=== PATIENT | female | born 2000 | race Caucasian/White ===

== ENCOUNTER 2023-01-08 14:06 | Outpatient (CLI) | payer OTHER, SELFPAY | END 2023-01-08 14:07 | disposition home or self-care (01) | PROVIDERS: Visit Provider Physician Assistant Medical | DX: K59.09 Other constipation (principal); R19.5 Other fecal abnormalities | CPT/HCPCS: 80053; 82784; 84443; 86364 ==

== ENCOUNTER 2023-01-09 12:05 | Outpatient (CLI) | payer OTHER, SELFPAY | END 2023-01-09 12:06 | disposition home or self-care (01) | LOC: NFLDREF 01-11 14:50 | PROVIDERS: Visit Provider Physician Assistant Medical | DX: R19.5 Other fecal abnormalities (principal) | CPT/HCPCS: 87177; 87209; 87338 ==

== ENCOUNTER 2023-01-31 12:54 | Outpatient (CLI) | payer OTHER, SELFPAY | END 2023-01-31 12:55 | disposition home or self-care (01) | LOC: RAD 12:56 | PROVIDERS: PCP Physician Assistant Medical; Visit Provider Internal Medicine | DX: R00.2 Palpitations (principal) | CPT/HCPCS: 93306 ==

== ENCOUNTER 2023-05-08 13:44 | Emergency (ER) | payer OTHER, SELFPAY ==
[2023-05-08 14:00] VITALS: BP 113/70; PULSE 54; RESP 16; TEMP 37; O2SAT 100; BMI 22.3
[2023-05-08 16:14] LABS: Red Blood Count 4.71 m/uL (4.00-5.20)
[2023-05-08 16:15] LABS: Basophils Percent Auto 0.7 % (0.0-3.0); Eosinophils Percent Auto 3.3 % (0.0-7.0); Hematocrit 44.2 % (33.0-51.0); Hemoglobin* 14.5 gm/dL (12.0-16.0); Lymphocytes Percent Auto 38.1 % (20-44); Mean Corpuscular HGB Conc 33 gm/dL (32-36); Mean Corpuscular Hemoglobin 31 pg (26-34); Mean Corpuscular Volume 94 fL (80-100); Monocytes Percent Auto 5.9 % (0.0-11.0); Platelet Count* 287 K/uL (140-440); Slide Review Reflex No
[2023-05-08 16:21] LABS: C Reactive Protein* < 0.5 mg/dL (0.5-1.0)
--- NOTE | 2023-05-08 22:42 | ED_ITS ---
HPI - General Adult General Chief complaint: Neck Injury/Pain Time Seen by Provider: 05/08/23 16:25 History of Present Illness HPI narrative: Shayy Belle Patient seen in Internet down time with limited information 22 yo young woman here with complaint of neck pain.? She was sent from the [facility] with concern of meningitis.? She does not have radicular symptoms.? She has been feeling chilled.? Any neck movement hurts.? Hurts to swallow but more in the back of the neck.? When asked for indication of where maximal pain she reaches to the right lower paracervical/trapezial musculature.? She has not had any particular exposures to illness.? Has felt like she has had a bit of a runny nose since swimming a dirty [place] without known infection, 3 weeks ago.? 2 days ago when woke up are started to have some including of discomfort in her neck.? This has continued to be present since that time and escalates over the course of the day.? She has had no fever.? No rash.? As noted has had some chills.? Mild bitemporal headache.? Mildly sun sensitive.? No nausea or vomiting.? She has tried treatment with ice Advil acetaminophen.? Most heat as well.? Ice seems to be most helpful.? Extension actually seems to cause most pain.? She has been vaccinated for meningitis. Related Data Home Medications Medication Instructions Recorded Confirmed etonogestrel 68 mg subdermal 1 implant subdermal ONCE 11/17/22 05/21/23 implant (Nexplanon) Allergies Allergy/AdvReac Type Severity Reaction Status Date / Time miconazole AdvReac Intermediate Verified 05/21/23 12:43 Review of Systems Status of ROS: Reports: 6 or more systems reviewed and unremarkable except as noted in History and below [facility] Medical History History of seizure ?Z87.898 - Personal history of other specified conditions (ICD-10) Congenital genu valgum of both knees ?Q74.1 - Congenital malformation of knee (ICD-10) Bartholin's duct cyst ?N75.0 - Cyst of Bartholin's gland (ICD-10) Heart palpitations ?R00.2 - Palpitations (ICD-10) Surgical History Bartholin's duct cyst ?N75.0 - Cyst of Bartholin's gland (ICD-10) Family History Grandmother Diabetes High blood pressure Mother High blood pressure Coronary artery disease Father Coronary artery disease Social History Narrative: Single. 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 Nonsmoker. Denies alcohol use. No illicit drug use. Safe at home and no concerns with abuse. Smoking Status: Never smoker How often do you have a drink containing alcohol: never How often do you have six or more drinks on one occasion: Never AUDIT-C Alcohol total score: 0 Non-prescribed substance use: denies use Little interest or pleasure in doing things: not at all Feeling down, depressed, or hopeless: not at all Are you currently sexually active: Yes Are you using contraception or practicing any form of control: Yes (Nexplanon) Exam Narrative: Exam Narrative: clearly anxious. looks to have been tearful. ice pack at right posterior neck. assists movement of neck with rotation of torso. moderately tender to palpation in right paracervical and right trapezial musculature more than left. not clearly with midline tenderness. Negative Kernig's and Brudzinski's no facial swelling erythema tenderness. tms clear. op without erythema. Skin warm and dry without rash. Const: Vital Signs, click to edit/add: Vital Signs - 24 hr 05/08/23 14:00 Temperature 98.6 F Pulse Rate [Left P ulse Oximeter] 54 L Respiratory Rate 16 Blood Pressure [Le ft Upper Arm] 113/70 Pulse Oximetry 100 Oxygen Delivery Me thod Room Air Documenting provider has reviewed patient's vital signs: yes Course Vital Signs Vital signs: Initial Vital Signs Temperature 98.6 F 05/08/23 14:00 Temperature Source Temporal Artery Scan 05/08/23 14:00 Pulse Rate 54 L 05/08/23 14:00 Respiratory Rate 16 05/08/23 14:00 Blood Pressure 113/70 05/08/23 14:00 Blood Pressure Mean 84 05/08/23 14:00 Blood Pressure Position Sitting 05/08/23 14:00 Pulse Oximetry 100 05/08/23 14:00 Oxygen Delivery Method Room Air 05/08/23 14:00 Vital Signs Temperature 98.6 F 05/08/23 14:00 Pulse Rate 54 L 05/08/23 14:00 Respiratory Rate 16 05/08/23 14:00 Blood Pressure 113/70 05/08/23 14:00 Pulse Oximetry 100 05/08/23 14:00 Oxygen Delivery Method Room Air 05/08/23 14:00 Temperature 98.6 F 05/08/23 14:00 Pulse Rate 54 L 05/08/23 14:00 Respiratory Rate 16 05/08/23 14:00 Blood Pressure 113/70 05/08/23 14:00 Pulse Oximetry 100 05/08/23 14:00 Oxygen Delivery Method Room Air 05/08/23 14:00 Medical Decision Making MDM Narrative Medical decision making narrative: suspect msk pain more than infectious. offered local anesthetic injections. suspect facet issue and muscle pain and spasms. normal wbc Discussed with Dr. Ferreira for potential follow up. see patient d/c plan Lab Data Lab results reviewed: Yes I reviewed the patient's lab results Labs: Lab Results 05/08/23 Range/Units 15:50 WBC 5.80 (4.50-11.00) K/uL RBC 4.71 (4.00-5.20) m/uL Hgb 14.5 (12.0-16.0) gm/dL Hct 44.2 (33.0-51.0) % MCV 94 (80-100) fL MCH 31 (26-34) pg MCHC 33 (32-36) gm/dL Plt Count 287 (140-440) K/uL Neut % (Auto) 52.0 (42.0-72.0) % Lymph % (Auto) 38.1 (20-44) % [place] % (Auto) 5.9 (0.0-11.0) % Eos % (Auto) 3.3 (0.0-7.0) % Baso % (Auto) 0.7 (0.0-3.0) % Neut # (Auto) 3.00 (1.7-7.0) K/uL Lymph # (Auto) 2.20 (0.90-2.90) K/uL [place] # (Auto) 0.30 (0.00-0.90) K/UL Eos # (Auto) 0.20 (0.00-0.50) K/uL Baso # (Auto) 0.00 (0.00-0.30) K/uL C-Reactive Protein < 0.5 L (0.5-1.0) mg/dL Discharge Plan Discharge Clinical Impression: Neck pain Patient Disposition: Home w/ Parent or Adult Condition: Stable Additional Instructions: I just do not see clear evidence of meningitis here today. I think this is a musculoskeletal issue. I spoke with Dr. Ferreira would be happy to see you in clinic, probably this . You can call phone number [phone] to schedule with him. You could also consider seeing an osteopathic physician perhaps at the [facility]. I believe Dr. Dang does do manipulations as needed. You may need involvement of physical therapy. There are some local chiropractor is a might consider seeing but avoid large manipulations of the neck. Consider Dr. William Hester [phone] Rinku Angulo I would try to do gentle pull-down stretches of your neck. Icing is fine. Can take up to 800 mg of ibuprofen or up to 1000 mg of acetaminophen per dose. Alternative to the ibuprofen might be up to 500 mg of naproxen. Keep in mind that each tablet of Percocet contains 325 mg of acetaminophen. Percocet, cyclobenzaprine, prednisone from [facility] Take the prednisone as 60 mg on day 1 and 2. 40 mg daily days 3 through 6 Prescriptions: No Action Nexplanon 68 mg implant 1 implant subdermal ONCE Rx Instructions: as a single dose Follow Up/Referrals: Radha Florez PA-C [Primary Care Provider] - Stand Alone [facility] Info Inst[facility]
== END 2023-05-08 17:03 | disposition home or self-care (01) ==
PROVIDERS: Family Medicine; Emergency Provider Family Medicine; PCP Physician Assistant Medical
DX: M54.2 Cervicalgia (principal)
CPT/HCPCS: 36415; 85025; 86140; 99284

== ENCOUNTER 2023-05-21 13:09 | Outpatient (CLI) | payer OTHER, SELFPAY | END 2023-05-21 13:10 | disposition home or self-care (01) | PROVIDERS: PCP Physician Assistant Medical; Visit Provider Obstetrics & Gynecology | DX: N75.1 Abscess of Bartholin's gland (principal) | CPT/HCPCS: 87070; 87186 ==

== ENCOUNTER 2023-09-18 09:54 | Outpatient (CLI) | payer OTHER, SELFPAY | END 2023-09-18 09:55 | disposition home or self-care (01) | LOC: NFLDREF 09:55 | PROVIDERS: PCP Physician Assistant Medical; Visit Provider Obstetrics & Gynecology | DX: N75.1 Abscess of Bartholin's gland (principal) | CPT/HCPCS: 87070 ==

== ENCOUNTER 2023-11-27 08:45 | Outpatient (CLI) | payer OTHER, SELFPAY ==
--- OUTSIDE RECORDS SUMMARY | 2023-11-27 09:14 | XMS_ITS | Clinical Summary ---
Author Name Unknown Organization [facility] Address [address] [place] [address]. [place] [address] Care Team Providers Care [employer] Advisor Name Role Phone No Ref-Primary, Physician Primary Care Provider Allergies No known active allergies Medications No known medications Immunizations Name Administration Dates Next Due Comvax (HIB/HepB) 01/15/2003 DTAP (<7y) 09/16/2007, 3,01/15/2003,11/20 HEPATITIS A (PEDS 12M-18Y) 10/07/2007,09/11/2006 HIB (PRP-T) 2002 Hepatitis B, Peds 07/01/2003,01/15/2003,11/20/19 03 Influenza (H1N1) 11/09/2009,09/14/2009 Influenza (IIV3) PF 08/07/2007, 6,09/05/2005,08/16,09/21/2003 Influenza Intranasal Vaccine 07/09/2012, 08/14/2011,07/23/2010,07/30,08/11/2008 Influenza Vaccine >6 months,quad, PF 09/30/2015 Influenza, seasonal, injectable, PF 09/26/2016 Influenza,INJ,MDCK,PF,Quad >6mo(Flucelvax) 09/15/2020,08/22/2017 MMR 09/16/2007,09/21/2003 Meningococcal ACWY (Menactra??) 11/10/2020,10/09 Meningococcal ACWY (Menveo??) 10/09/2014 Meningococcal B (Bexsero??) 11/10/2020 Nasal Influenza Vaccine 2-49 (FluMist) 3 Pneumococcal (PCV 7) 09/13/2004,03/19/20 03,01/15/2003,11/20 Poliovirus, inactivated (IPV) 10/07/2007 ,07/01/2003,01/15/2003,11/20 TDAP (Adacel,Boostrix) 10/09/2014 TRIHIBIT (DTAP/HIB, <7y) 12/29/2003 Varicella 09/16/2007,09/21/2003 Family History Relation Status Comments Father Alive Mother Alive Social History Tobacco Use Types Packs/Day Years Used Date Smoking Tobacco: Passive Smo ke Exposure - Never Smoker Smokeless Tobacco: Never Comments:in home Alcohol Use Standard Drinks/Week Comments Not Currently 0 (1 standard drink = 0.6 oz pur e alcohol) Adolescent Education Answer Date Record ed Getting School Help Needed Not on file 07/22 Sex and Gender Information Value Date Recorded Sex Assigned at Not on file Gender Identity Not on file Sexual Orientation Not on file Last Filed Vital Signs Vital Sign Reading Time Taken Comments Blood Pressure 110/66 01/20/2022 11:34 AM CDT Pulse 78 01/20/2022 11:34 AM CDT Temperature 37.2 ??C (98.9 ??F) 01/20/2022 11:34 AM C DT Respiratory Rate - - Oxygen Saturation 98% 01/20/2022 11:34 AM CDT Inhaled Oxygen Concentration - - Weight 58.5 kg (129 lb) 01/20/2022 11:34 AM CDT Height - - Body Mass Index - - Plan of Treatment Health Maintenance Due Date Last Done Comments ADVANCE CARE PLANNING 2002 ANNUAL REVIEW OF HM ORDERS 2002 CHLAMYDIA SCREENING 2002 YEARLY PREVENTIVE VISIT 2002 COVID-19 Vaccine (#1) 03/18/2003 HPV IMMUNIZATION (1 - 2-dose series) 2013 HIV SCREENING 2017 HEPATITIS C SCREENING 2020 INFLUENZA VACCINE (#1) 2023 0, 08/22/2017, 09/26/2016, Additional history exists PAP 2023 PHQ-2 (once per calendar year) 2023 DTAP/TDAP/TD IMMUNIZATION (7 - Td or Tdap) 10/09/2024 10/09/2014, 09/16/2007, 12/29/2003, Additional history exists HEPATITIS B IMMUNIZATION Completed 003, 01/15/2003, 01/15/2003, Additional history exists Pneumococcal Vaccine: Pediatrics (0 to 5 Years) and At-Risk Patients (6 to 64 Years) Aged Out 09/13/2004, 03/19/2003, 01/15/2003, Additional history exists No longer eligible based on patient's age to complete this topic IPV IMMUNIZATION Completed 10/07/2007, 12/2002, 01/15/2003, Additional history exists MENINGITIS IMMUNIZATION Completed 11/10/19 21, 10/09/2014, 10/09/2014 RSV MONOCLONAL ANTIBODY Aged Out No l onger eligible based on patient's age to complete this topic Care Teams [employer] Advisor Relationship Specialty Start Date End Date No Ref-Primary, Physician PCP - General 01/20/22
--- OUTSIDE RECORDS SUMMARY | 2023-11-27 09:14 | XMS_ITS | Clinical Summary ---
Author Name Unknown Organization [facility] Address [place], [place] [address] Care Team Providers Care Saddle Mechanic Name Role Phone Dennis Leone MD Primary Care Provider Allergies Active Allergy Reactions Criticality Noted Date Comments Miconazole *Unknown 02/18/2023 Patient states it does the opposite of what it should be doing Medications Medication Sig Dispensed Refills Start Date End Date Status etonogestrel subdermal implant (Nexplanon) 68 mg implant Inject 1 Each subdermal one time for 1 dose. 1 Each 0 02/18/2023 Active Active Problems Problem Noted Date Diagnosed Date Constipation Immunizations Name Administration Dates Next Due DTaP 09/16/2007, 4,03/19/2003,01/15,2002 Hepatitis A (Peds) 10/07/2007,09/11/2006 Hepatitis B (Peds) 07/01/2003,01/15/2003, 003 Hib Conjugate, Unspecified 12/29/2003,01/15/2003 ,2002 Inactivated Polio Vaccine 10/07/2007,12/2002,01/15/2003,11/20 Influenza A (H1N1), Inactivated 11/09/2009,09/14 Influenza, IIV3 (Age 6-35 mos) 09/26/2016 Influenza, IIV3 (Age >=3 years) 08/07/20 07,08/20/2006,09/05/2005,08/16,09/21/2003 Influenza, IIV4 08/01/2022,09/30/2015 Influenza, Live, Intranasal Laiv3 07/09/2012,,08/11/2008 Influenza,CCIIV4 PRESERV FREE 09/15/2020, 017 Influenza,LAIV4 Live Intrana mango (Flumist) 08/05/2013 MMR 09/16/2007,09/21/2003 Meningococcal Vaccine (Menactra) 11/10/2020,09/28 Pneumococcal Poly,23-Valent (Pneumovax) 09/13/2004,03/19/2003,01/15/2003,11/20 Tdap 10/09/2014 Varicella Vaccine 09/16/2007,09/21/2003 Social History Tobacco Use Types Packs/Day Years Used Date Smoking Tobacco: Never Smokeless Tobacco: Never Alcohol Use Standard Drinks/Week Comments No 0 (1 standard drink = 0.6 oz pur e alcohol) Social Connections Answer Date Recorded Frequency of Communication with Friends and Fami ly Not on file 01/05/2023 Sex and Gender Information Value Date Recorded Sex Assigned at Not on file Gender Identity Not on file Sexual Orientation Not on file Obstetrics History Last Filed Vital Signs Vital Sign Reading Time Taken Comments Blood Pressure 117/57 05/20/2023 3:50 AM CDT Pulse 64 05/20/2023 3:50 AM CDT Temperature 37.1 ??C (98.7 ??F) 05/20/2023 12:44 AM C DT Respiratory Rate 16 05/20/2023 3:50 AM CDT Oxygen Saturation 96% 05/20/2023 3:50 AM CDT Inhaled Oxygen Concentration - - Weight 59 kg (130 lb) 05/20/2023 12:44 AM CDT Height 163.8 cm (5' 4.5) 05/20/2023 12:44 AM CD T Body Mass Index 21.97 05/20/2023 12:44 AM CDT Plan of Treatment Health Maintenance Due Date Last Done Comments HPV series for age 9-26 (1 - 2-dose series) 2013 Depression screening for age 12+ 2014 HIV for age 15-65 2017 Hepatitis C screening for age 18-79 2020 COVID-19 vaccine series (2022- season) 2023 04/05/2023 Influenza for age 9-49 06/29/2023 , 09/15/2020, 08/22/2017, Additional history exists Pap test for age 21-65 2023 BMI (ht and wt on same day) for age 18+ 02/19/2024 02/18/2023 Tetanus booster 10/09/2024 10/09/2014 Pneumococcal series for age 6-64 Aged Out 09/13/2004, 03/19/2003, 01/15/2003, Additional history exists No longer eligible based on patient's age to complete this topic Tdap Completed 10/09/2014 Meningococcal series for age 11-21 Completed 11/10/2020, 10/09/2014 Care Teams Saddle Mechanic Relationship Specialty Start Date End Date Dennis Leone MD [address] [place] [address] PCP - General 06/27/10
--- OUTSIDE RECORDS SUMMARY | 2023-11-27 09:15 | XMS_ITS | Referral Summary ---
Author Name Unknown Organization [facility] Address [address] [place] [address]. [place] [address] Care Team Providers Care Clinical Documentation Improvement Specialist Name Role Phone No Ref-Primary, Physician Primary [...] 10/09/2014 TRIHIBIT (DTAP/HIB, <7y) 12/29/2003 Varicella 09/16/2007,09/21/2003 Social History Tobacco Use Types Packs/Day [...] Mass Index - - Plan of Treatment Not on file Care Teams Clinical Documentation Improvement Specialist Relationship Specialty Start Date End Date No Ref-Primary, Physician PCP - General 01/20/22
== END 2023-11-27 08:46 | disposition home or self-care (01) ==
LOC: NFLDREF 08:47
PROVIDERS: PCP Physician Assistant Medical; Visit Provider Obstetrics & Gynecology
DX: N75.0 Cyst of Bartholin's gland (principal)
CPT/HCPCS: 87070

== ENCOUNTER 2023-11-28 10:25 | Outpatient (CLI) | payer OTHER, SELFPAY ==
--- OUTSIDE RECORDS SUMMARY | 2023-11-28 10:33 | XMS_ITS | Clinical Summary ---
Author Name Unknown Organization [facility] Address [place], [place] [address] Care Team Providers Care Animal Shelter Supervisor Name Role Phone Dennis Leone MD Primary [...] age 11-21 Completed 11/10/2020, 10/09/2014 Care Teams Animal Shelter Supervisor Relationship Specialty Start Date End Date Dennis Leone MD [address] [place] [address] PCP - General 06/27/10
--- OUTSIDE RECORDS SUMMARY | 2023-11-28 10:33 | XMS_ITS | Referral Summary ---
Author Name Unknown Organization [facility] Address [address] [place] [address]. [place] [address] Care Team Providers Care Fishery Biologist Name Role Phone No Ref-Primary, Physician Primary [...] of Treatment Not on file Care Teams Fishery Biologist Relationship Specialty Start Date End Date No Ref-Primary, Physician PCP - General 01/20/22
--- OUTSIDE RECORDS SUMMARY | 2023-11-28 10:33 | XMS_ITS | Clinical Summary ---
Author Name Unknown Organization [facility] Address [address] [place] [address]. [place] [address] Care Team Providers Care Joint Cutter Machine Name Role Phone No Ref-Primary, Physician Primary [...] age to complete this topic Care Teams Joint Cutter Machine Relationship Specialty Start Date End Date No Ref-Primary, Physician PCP - General 01/20/22
== END 2023-11-28 10:26 | disposition home or self-care (01) ==
LOC: NFLDREF 10:26
PROVIDERS: PCP Physician Assistant Medical; Visit Provider Obstetrics & Gynecology
DX: D72.829 Elevated white blood cell count, unspecified (principal); N75.1 Abscess of Bartholin's gland
CPT/HCPCS: 86703

== ENCOUNTER 2023-11-30 14:37 | Inpatient (IN) | payer OTHER, SELFPAY ==
--- NOTE | 2023-11-30 14:53 | CRLHL7_ITS ---
For Patients: As a result of the Century Cures Act, medical imaging exams and procedure reports are released immediately into your electronic medical record. You may view this report before your referring provider. If you have questions, please contact your health care provider. INDICATION: Bartholin and vulvar abscess unresponsive to I and D, and PO abx. CT ABDOMEN AND PELVIS WITHOUT AND WITH CONTRAST TECHNIQUE: Multidetector CT imaging was performed through the abdomen and pelvis prior to and following intravenous contrast administration using 67 mL Isovue 370. Coronal and sagittal reconstructions were generated. COMPARISON: None. FINDINGS: Lower chest: Lung bases are clear. Liver: Within normal limits. Gallbladder and bile ducts: No gallbladder wall thickening or calcified gallstones. No biliary dilation identified. Pancreas: Unremarkable. Spleen: Normal. Adrenals: No nodules or masses. Kidneys, ureters, and urinary bladder: No urinary tract stones are identified. No renal masses or hydronephrosis. No bladder mass or definite wall thickening. Gastrointestinal tract: Normal caliber bowel without wall thickening. The appendix is normal. Vascular structures: Normal for age. Peritoneum: No free air, abscess, or significant free fluid. Lymph nodes: No pathologically enlarged nodes identified. Reproductive organs: There is soft tissue swelling of the labia majora, greatest on the right, with a bilobed fluid collection showing enhancing margins, consistent with an abscess, in the region of the right Bartholin gland. The abscess has a 1.7 x 0.8 x 1.5 centimeter loculation best seen on image 155 of series 6 and image 43 of series 8, and a more inferior and anterior 3.2 x 2.3 x 2.9 centimeter loculation, with the loculations likely connected by a narrow neck as suggested on image 40 of series 8. An 11 x 5 x 8 millimeter focus of high density is noted along the superior wall of the larger loculation and may represent a calcification or less likely a foreign body. A 3.4 x 2.7 x 3.1 centimeter cystic lesion is noted within the right ovary, likely an ovarian cyst. Unremarkable uterus and left ovary. Bones: Normal for age. IMPRESSION: 1. Bilobed abscess in the region of the right Bartholin gland, as detailed above. The abscess has loculations measuring 1.7 x 0.8 x 1.5 centimeters and 3.2 x 2.3 x 2.9 centimeters which appear connected by a narrow neck. An 11 x 5 x 8 millimeter calcification, less likely foreign body, is noted along the superior wall of the larger loculation. 2. Incidental 3.4 x 2.7 x 3.1 centimeter probable cyst of the right ovary. CLIVE PHILLIPS MD [facility] Dictated by Dwight Phillips MD @ 11/30/2023 7:17:07 PM Please note that all CT scans at this facility use dose modulation, iterative reconstruction, and/or weight-based dosing when appropriate to reduce radiation dose to as low as reasonably achievable. Dictated by: Dwight Phillips MD @ 11/30/2023 19:19:57 (Electronically Signed)
[2023-11-30 15:33] VITALS: TEMP 37.2
[2023-11-30] MEDS: LACTATED RINGERS 1000 ML 1,000 ML 125 ML IV (15:33)
[2023-11-30] MEDS: KETOROLAC 15 MG/ML inj IVP ×2 (15:33→20:26)
[2023-11-30] MEDS: PIPERACILLIN/TAZOBACTAM 3.375 GM in 0.9 % SODIUM CHLORIDE Mini-bag 100 ML IVPB ×2 (15:34→20:26)
[2023-11-30 15:43] LABS: Basophils Absolute Auto 0.03 K/uL (0.00-0.30); Basophils Percent Auto 0.3 % (0.0-3.0); Eosinophils Absolute Auto 0.17 K/uL (0.00-0.50); Eosinophils Percent Auto 1.7 % (0.0-7.0); Hematocrit 41.3 % (33.0-51.0); Immature Granulocytes Abs Auto 0.02 K/uL (0.00-0.30); Immature Granulocytes Pct Auto 0.2 %; Lymphocytes Percent Auto 14.3 % (20-44); Mean Corpuscular HGB Conc 34 gm/dL (32-36); Mean Corpuscular Hemoglobin 31 pg (26-34); Mean Corpuscular Volume 92 fL (80-100); Monocytes Percent Auto 6.7 % (0.0-11.0); Neutrophils Percent Auto 76.8 % (42.0-72.0); Platelet Count* 290 K/uL (140-440); RDW Coefficient of Variation % 11.1 % (11.5-15.5); Red Blood Count 4.48 m/uL (4.00-5.20); White Blood Count* 10.29 K/uL (4.50-11.00)
[2023-11-30 15:46] LABS: Slide Review Reflex No
[2023-11-30 15:55] LABS: Albumin* 4.4 g/dL (3.3-5.0)
[2023-11-30 15:56] LABS: Chloride* 104 mmol/L (96-114); Potassium* 4.3 mmol/L (3.6-5.1); Sodium* 133 mmol/L (135-149)
[2023-11-30 15:58] LABS: Anion Gap 11 mEq/L (7-15); Aspartate Amino Transferase* 24 U/L (12-35); Bilirubin Total* 0.7 mg/dL (0.1-1.5); Carbon Dioxide* 18 mmol/L (20-32); Creatinine* 0.8 mg/dL (0.5-1.5); Estimated Glomerular Filt Rate 107 ml/min
[2023-11-30 15:59] LABS: Alanine Aminotransferase* 15 U/L (4-35); Alkaline Phosphatase* 84 U/L (40-150); Blood Urea Nitrogen* 10 mg/dL (5-24); Calcium* 9.1 mg/dL (8.4-10.6); Glucose* 107 mg/dL (60-115); Total Protein* 7.8 g/dL (6.0-8.3)
[2023-11-30 16:34] LABS: HCG Quantitative* < 2.39 mIU/mL
--- NOTE | 2023-11-30 16:48 | PM.GYNHPNOR ---
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 Patient was seen on 11/27/2023 in clinic, complained of on and off episodes of fever, chills. Patient with known history of recurrent Bartholin gland cysts/abscess. Patient had I&D of right Bartholin gland cyst with a greenish tidwell-green discharge, wound culture was collected and she was prescribed Cephalexin to complete 10 days of antibiotics. Wound culture did not isolate any significant pathogen, mostly skin dinesh. Patient then returns to clinic on 11/28/23 with complaints of worsening symptoms. Continued to complain of intermittent episodes of fever, she had I&D again and antibiotics were changed to Trimethoprim-Sulfa and Tramadol for pain management. Patient again calls today with worsening pain and felt like her vulva was feeling much harder again. Upon evaluation in the clinic patient had to be moved to our clinic room in a wheelchair due to significant discomfort, she would only allow me to visualize the area due to severe pain. Patient also with a low grade fever. I recommended admission to hospital [facility]. Patient denies inability to empty her bladder well, dysuria, urgency or frequency, constipation or diarrhea, SOB, cough, nasal discharge, back pain, sick contacts either. Review of Systems Status of ROS: Reports: 10 or more systems reviewed and unremarkable except as noted in History and below Meds Home Medications and Allergies Home Medications Medication Instructions Recorded Confirmed Type etonogestrel 68 mg subdermal 1 implant subdermal ONCE 11/17/22 11/30/23 History implant (Nexplanon) acetaminophen 500 mg tablet 1,000 mg PO Q6H PRN 11/30/23 11/30/23 History (Tylenol Extra Strength) Allergies Allergy/AdvReac Type Severity Reaction Status Date / Time miconazole AdvReac Intermediate Verified 11/30/23 14:04 PFSH Active Problems (Updated 11/30/23 @ 17:05 by Miriam Mcneill MD) Yeast vaginitis (Acute) ?B37.31 - Acute candidiasis of vulva and vagina (ICD-10) Abscess of right Bartholin's gland (Acute) ?N75.1 - Abscess of Bartholin's gland (ICD-10) Chronic constipation (Acute) ?K59.09 - Other constipation (ICD-10) Change in stool (Acute) ?R19.5 - Other fecal abnormalities (ICD-10) Nexplanon insertion (Acute) 12/12/21 ?Z30.017 - Encounter for initial prescription of implantable subdermal contraceptive (ICD-10) 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 ?Q74.1 - Congenital malformation of knee (ICD-10) Heart palpitations (Acute) Referred to cardiology. ?R00.2 - Palpitations (ICD-10) Bartholin's duct cyst (Resolved) Recurrent even after marsupialization and I&D ?N75.0 - Cyst of Bartholin's gland (ICD-10) Medical History History of seizure ?Z87.898 - Personal history of other specified conditions (ICD-10) Congenital genu valgum of both knees ?Q74.1 - Congenital malformation of knee (ICD-10) Bartholin's duct cyst ?N75.0 - Cyst of Bartholin's gland (ICD-10) Heart palpitations ?R00.2 - Palpitations (ICD-10) Surgical History Bartholin's duct cyst ?N75.0 - Cyst of Bartholin's gland (ICD-10) Family History Grandmother Diabetes High blood pressure Mother High blood pressure Coronary artery disease Father Coronary artery disease Social History Narrative: 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 Nonsmoker. Denies alcohol use. No illicit drug use. Safe at home and no concerns with abuse. Smoking Status: Never smoker How often do you have a drink containing alcohol: never How often do you have six or more drinks on one occasion: Never AUDIT-C Alcohol total score: 0 Non-prescribed substance use: denies use Little interest or pleasure in doing things: not at all Feeling down, depressed, or hopeless: not at all Are you currently sexually active: Yes Are you using contraception or practicing any form of control: Yes (Nexplanon) Reproductive Health History : 0 Para: 0 CRUSHER MACHINE OPERATOR - Exam Physical Exam: Vital signs: Temp 99 F 11/30/23 15:33 Narrative: VITAL SIGNS: As noted above. GENERAL APPEARANCE: Alert, cooperative female in no acute distress. MOOD & AFFECT: Normal. ABDOMEN: Soft, non-distended and nontender. :Visual exam alone as patient declines touch of the tissue. Right labia majora and minora look to be swollen and cross the midline, erythematous. There is a more round lesion on the medical aspect of the labia minora that looks to be about 2-3cm. EXTREMITIES: Nonedematous. Well perfused. Nontender. CRUSHER MACHINE OPERATOR - Results Labs Labs: Short CBC 11/30/23 Range/Units 15:25 WBC 10.29 (4.50-11.00) K/uL Hgb 14.0 (12.0-16.0) gm/dL Hct 41.3 (33.0-51.0) % Plt Count 290 (140-440) K/uL BMP 11/30/23 15:25 Sodium 133 L Potassium 4.3 Chloride 104 Carbon Dioxide 18 L BUN 10 Creatinine 0.8 Glucose 107 Calcium 9.1 Liver Function 11/30/23 Range/Units 15:25 Total Bilirubin 0.7 (0.1-1.5) mg/dL AST 24 (12-35) U/L ALT 15 (4-35) U/L Alkaline Phosphatase 84 (40-150) U/L Albumin 4.4 (3.3-5.0) g/dL Assessment and Plan Assessment and plan (1) Abscess of right Bartholin's gland: Status: Acute Assessment and Plan: 1. Will start IV antibiotics: Vancomycin 1g every 12 hours (weight based), Zosyn 3.375mg IV every 6 hours. 2. Pain management focus on anti inflammatory medication with Toradol, goal to transition to oral Ibuprofen, continue Acetaminophen and add opioid if needed. 3. Abdominal/Pelvic CT scan with and without contrast ordered. 4. Labs: blood cultures, CBC, CMP, UA 5. Continue close monitoring/progression of symptoms, need for repeat surgical intervention would have to be at OR. Will f/u closely.
[2023-11-30 17:24] VITALS: BP 143/80; PULSE 74; RESP 16; TEMP 37.3; O2SAT 95; O2SAT 98; BMI 23.4
[2023-11-30 17:24] LABS: Appearance Urine Clear (Clear); Bilirubin Urine Negative (Negative); Blood Urine 1+ (Negative); Color Urine Yellow (Yellow); Glucose Urine Negative (Negative); Ketones Urine Negative (Negative); Leukocyte Esterase Urine Trace (Negative); Nitrite Urine Negative (Negative); Protein Urine Negative (Negative); Specific Gravity Urine <= 1.005 (1.000-1.030); Urobilinogen Urine 0.2 (0.2-1.0)
[2023-11-30 18:48] LABS: RBC Urine 0-2 (0-2); Squamous Epithelial Cell Urine Few (None-Few); WBC Urine 0-2 (0-5)
[2023-11-30 18:49] LABS: Bacteria Urine Few
[2023-11-30 19:00] VITALS: BP 112/59; PULSE 69; RESP 16; TEMP 36.9; O2SAT 99
[2023-11-30] MEDS: ACETAMINOPHEN 325 MG TABLET 1000 MG PO (20:36)
[2023-12-01] MEDS: ACETAMINOPHEN 325 MG TABLET 1000 MG PO (02:51)
[2023-12-01] MEDS: KETOROLAC 15 MG/ML inj IVP ×3 (02:53→15:30)
[2023-12-01] MEDS: PIPERACILLIN/TAZOBACTAM 3.375 GM in 0.9 % SODIUM CHLORIDE Mini-bag 100 ML IVPB ×4 (02:53→21:12)
[2023-12-01] MEDS: LACTATED RINGERS 1000 ML 1,000 ML 125 ML IV (02:54)
[2023-12-01 03:00] VITALS: BP 107/67; PULSE 53; RESP 18; TEMP 36.7; O2SAT 100
[2023-12-01] MEDS: 0.9 % SODIUM CHLORIDE 250 ml IV (04:30)
--- NOTE | 2023-12-01 06:15 | PC.NURSE ---
End of shift [id number] ? Pt alert, oriented, and cooperative to care. Up independently in room, continent of bowel and bladder. Family at bedside. Pt reported pain as 7/10 that was managed with IVP medication from DEC with pt verbalizing improvement. Pt reported foul-smelling, blood colored drainage from abscess site, MD notified, instructed to keep area clean and allow to drain. RN provided education and supplies for keeping area clean and catching drainage. Pt reported difficulty sleeping, refused RN offer of melatonin, sound machine, and aromatherapy. Pt tolerating RA, regular diet, fluids. VSS, afebrile. Pt appears to be resting comfortably at the end of shift. ?
[2023-12-01 06:29] LABS: Basophils Absolute Auto 0.03 K/uL (0.00-0.30); Basophils Percent Auto 0.5 % (0.0-3.0); Eosinophils Absolute Auto 0.39 K/uL (0.00-0.50); Eosinophils Percent Auto 5.9 % (0.0-7.0); Hemoglobin* 12.3 gm/dL (12.0-16.0); Immature Granulocytes Abs Auto 0.01 K/uL (0.00-0.30); Immature Granulocytes Pct Auto 0.2 %; Lymphocytes Absolute Auto 2.11 K/uL (0.90-2.90); Lymphocytes Percent Auto 31.8 % (20-44); Mean Corpuscular HGB Conc 33 gm/dL (32-36); Mean Corpuscular Hemoglobin 31 pg (26-34); Mean Corpuscular Volume 94 fL (80-100); Neutrophils Absolute Auto 3.56 K/uL (1.7-7.0); Neutrophils Percent Auto 53.6 % (42.0-72.0); Platelet Count* 274 K/uL (140-440); RDW Coefficient of Variation % 11.5 % (11.5-15.5); Red Blood Count 3.94 m/uL (4.00-5.20); White Blood Count* 6.63 K/uL (4.50-11.00)
[2023-12-01 06:41] LABS: Slide Review Reflex No
--- NOTE | 2023-12-01 08:52 | PM.GYNPNNOR ---
Progress Note: A&P Assessment and plan (1) Bartholin's gland abscess: Status: Acute Assessment and Plan: 1. Continue IV vancomycin and Zosyn for 48 hours which will be 16:30 on 12/02/2023. 2. Plan to discharge the patient home on oral Augmentin. 3. She has a follow-up appointment with Dr. Singh on Sunday12/04/2023. INTERACTIVE MEDIA SPECIALIST- PN:Subj Non-OR Subjective Time Seen by Provider: 08:40 Date Seen: 12/01/23 INTERACTIVE MEDIA SPECIALIST-PN: Obj Exam Physical Exam: Vital signs: Temp Pulse Resp BP Pulse Ox O2 Del Method 98.1 F 53 L 18 107/67 100 Room Air 12/01/23 03:00 12/01/23 03:00 12/01/23 03:00 12/01/23 03:00 12/01/23 03:00 12/01/23 03:00 Narrative: S: Shayy is a 23 yo who was admitted on 11/30/2023 with a recurrent right Bartholin gland abscess. She has been on IV Vancomycin and Zosyn. She has been afebrile since admission, tolerating a regular diet and denies N/V. She states that the abscess is much less painful today and that she is able to walk without difficulty. She was also able to sleep last night. She has been using Toradol and acetaminophen for pain control and both have been working well. She is not using a narcotic. O: General: Pleasant, , well groomed young woman in no acute distress. Vital signs: Included in her electronic medical record. Cardiac: Regular rate and rhythm without gallop rub or murmur. Chest: Clear to auscultation bilaterally without wheezes, rales or rhonchi. Abdomen: Soft, nontender, nondistended with normal bowel sounds throughout. Genitourinary: Left labia majus and minus both a erythematous and edematous. There is blood tinged, brownish/yellowish discharge. The patient is wearing a pad. It is nontender to palpation. INTERACTIVE MEDIA SPECIALIST - PN: Obj Data Labs Labs: Laboratory Results - last 24 hr 11/30/23 11/30/23 11/30/23 15:25 15:57 17:00 WBC 10.29 RBC 4.48 Hgb 14.0 Hct 41.3 MCV 92 MCH 31 MCHC 34 RDW Coeff of Berta 11.1 L Plt Count 290 Neut % (Auto) 76.8 H Lymph % (Auto) 14.3 L [place] % (Auto) 6.7 Eos % (Auto) 1.7 Baso % (Auto) 0.3 Neut # (Auto) 7.90 H Lymph # (Auto) 1.50 [place] # (Auto) 0.70 Eos # (Auto) 0.17 Baso # (Auto) 0.03 Abs Immat Gran (auto) 0.02 Imm/Tot Granulo (auto) 0.2 Sodium 133 L Potassium 4.3 Chloride 104 Carbon Dioxide 18 L Anion Gap 11 BUN 10 Creatinine 0.8 Estimated GFR 107 Glucose 107 Calcium 9.1 Total Bilirubin 0.7 AST 24 ALT 15 Alkaline Phosphatase 84 Total Protein 7.8 Albumin 4.4 HCG, Quant < 2.39 Urine Color Yellow Urine Appearance Clear Urine pH 6.0 Ur Specific [place] <= 1.005 Urine Protein Negative Urine Glucose (UA) Negative Urine Ketones Negative Urine Blood 1+ A Urine Nitrite Negative Urine Bilirubin Negative Urine Urobilinogen 0.2 Ur Leukocyte Esterase Trace A Urine RBC 0-2 Urine WBC 0-2 Ur Squamous Epith Cells Few Urine Bacteria Few A 12/01/23 06:18 WBC 6.63 RBC 3.94 L Hgb 12.3 Hct 37.0 MCV 94 MCH 31 MCHC 33 RDW Coeff of Berta 11.5 Plt Count 274 Neut % (Auto) 53.6 Lymph % (Auto) 31.8 [place] % (Auto) 8.0 Eos % (Auto) 5.9 Baso % (Auto) 0.5 Neut # (Auto) 3.56 Lymph # (Auto) 2.11 [place] # (Auto) 0.50 Eos # (Auto) 0.39 Baso # (Auto) 0.03 Abs Immat Gran (auto) 0.01 Imm/Tot Granulo (auto) 0.2 Sodium Potassium Chloride Carbon Dioxide Anion Gap BUN Creatinine Estimated GFR Glucose Calcium Total Bilirubin AST ALT Alkaline Phosphatase Total Protein Albumin HCG, Quant Urine Color Urine Appearance Urine pH Ur Specific [place] Urine Protein Urine Glucose (UA) Urine Ketones Urine Blood Urine Nitrite Urine Bilirubin Urine Urobilinogen Ur Leukocyte Esterase Urine RBC Urine WBC Ur Squamous Epith Cells Urine Bacteria
[2023-12-01 09:25] VITALS: BP 109/66; PULSE 51; RESP 18; TEMP 37.2; O2SAT 98
[2023-12-01 11:00] VITALS: BP 114/61; PULSE 57; RESP 16; TEMP 36.8; O2SAT 99
[2023-12-01 15:00] VITALS: PULSE 56; RESP 18
[2023-12-01 15:26] VITALS: BP 108/63; PULSE 56; RESP 18; TEMP 37.4; O2SAT 99
[2023-12-01 19:00] VITALS: BP 118/68; PULSE 64; RESP 16; TEMP 36.7; O2SAT 100
[2023-12-01] MEDS: IBUPROFEN 600 MG TABLET PO ×2 (19:27→23:51)
--- NOTE | 2023-12-01 19:28 | PC.NURSE ---
Patient alert and orientedx4, denies pain all shift. Minimal serosanguineous vaginal drainage. LR discontinued this shift. Patient had a shower. Vitals stable. Parents at bedside all shift.
[2023-12-02 03:00] VITALS: BP 114/71; PULSE 59; RESP 16; TEMP 37.3; O2SAT 100
[2023-12-02] MEDS: PIPERACILLIN/TAZOBACTAM 3.375 GM in 0.9 % SODIUM CHLORIDE Mini-bag 100 ML IVPB ×3 (03:16→14:51)
[2023-12-02 04:03] VITALS: TEMP 37
--- NOTE | 2023-12-02 06:00 | PC.NURSE ---
End of shift [id number] ? Pt alert, oriented, and cooperative to care. Up independently in room, continent of bowel and bladder. Family at bedside. Pt reported pain as 0/10.?Pt reported serosanguineous colored drainage from abscess site, pt instructed to continue to keep area clean and allow to drain. Left forearm IV site infiltrated, pt expressed feelings of anxiousness related to new IV site in L AC. RN provided support and covered site with Tubigrip for distraction. Pt behavior indicated improvement.?Pt reported difficulty sleeping, refused RN offer of melatonin, sound machine, and aromatherapy. Observed to sleep during shift. Pt tolerating RA, regular diet, fluids. VSS, afebrile. Pt appears to be resting comfortably at the end of shift.??
[2023-12-02] MEDS: IBUPROFEN 600 MG TABLET PO (06:31)
[2023-12-02 08:34] VITALS: BP 118/73; PULSE 56; RESP 16; TEMP 36.7; O2SAT 99
--- NOTE | 2023-12-02 08:55 | P.DS_ITS ---
DS: Providers Provider Time Seen by Provider: 08:55 Date Seen: 12/02/23 Date of admission: 11/30/23 14:41 Primary care physician: Radha Florez PA-C Admitting Clinician: Miriam Mcneill MD Attending Physician on discharge: Ara Martinez MD Date of Discharge: 12/02/23 DS: Diagnosis Discharge Diagnosis (1) Bartholin's gland abscess: Status: Acute STRATEGIC PARTNER DEVELOPMENT MANAGER-Discharge Summary Hospital Course Hospital Course Narrative: Hospital Course: Shayy was admitted to the hospital on 11/30/2023 for IV antibiotic therapy for Bartholin's gland abscess. She had excellent response to the antibiotics. She was treated for 48 hours with vancomycin every 12 hours and Zosyn every 6 hours. She did not require anything for pain medication other than Toradol which was discontinued after 5 doses. She will be discharged home today after her 4:30 p.m. dose of vancomycin and 3:00 p.m. dose of Zosyn Objective: General: Alert and oriented x3. Pleasant, woman in no acute distress. Vital signs: See EMR. Heart: Regular rate and rhythm without gallop, rub or murmur. Chest: Clear to auscultation bilaterally. Abdomen: Soft, nontender, nondistended with normal bowel sounds throughout. No CVA or flank tenderness. Pelvic: Minimal vaginal bleeding consistent with menstrual cycle. The labia shows minimal erythema significant improvement from 12/01/2023. Vulva appears essentially normal. Extremities: No pain, edema, cyanosis or clubbing. Assessment: 23-year-old with a Bartholin's gland abscess status post 48 hours of IV antibiotics with excellent response. Plan: 1. Discharge home today. 2. Activity restrictions reviewed with the patient. 3. She has an appointment with Dr. Singh on Sunday12/04/2023 for follow-up. 4. Discharge home with combination of Bactrim DS and Augmentin for 7 days. Time Spent with Patient Time attestation: Total time spent providing and/or coordinating discharge services: STRATEGIC PARTNER DEVELOPMENT MANAGER - Exam Physical Exam: Vital signs: Temp Pulse Resp BP Pulse Ox O2 Del Method 98.1 F 56 L 16 118/73 99 Room Air 12/02/23 08:34 12/02/23 08:34 12/02/23 08:34 12/02/23 08:34 12/02/23 08:34 12/02/23 08:34 Narrative: See hospital course above STRATEGIC PARTNER DEVELOPMENT MANAGER - DS: Data Data Completed and Pending Labs on day of discharge: Preliminary micro results at discharge 11/30/23 15:30 Blood Culture - Preliminary Blood NO GROWTH AFTER 24 HOURS 11/30/23 15:25 Blood Culture - Preliminary Blood NO GROWTH AFTER 24 HOURS 11/30/23 17:00 Urine Culture - Preliminary Urine,Clean Catch No growth. Discharge Plan Discharge Disposition: Home, Self-Care Date of Admission: 11/30/23 14:41 Attending Provider on Discharge: Ara Martinez Primary Care Provider: Radha Florez Condition: Improved Anticipated Discharge Date/Time: 12/02/23 17:30 Discharge Medications: New ibuprofen 600 mg Tablet 600 mg PO Q6H Qty: 30 0RF sulfamethoxazole-trimethoprim [Bactrim DS] 800-160 mg tablet 1 tab PO BID Qty: 14 0RF amoxicillin-pot clavulanate [Augmentin] 500-125 mg tablet 1 tab PO BID Qty: 14 0RF Continued Nexplanon 68 mg implant 1 implant subdermal ONCE Rx Instructions: as a single dose tramadol 50 mg tablet 50 mg PO Q8H PRN (Reason: pain) Qty: 10 0RF acetaminophen [Tylenol Extra Strength] 500 mg tablet 1,000 mg PO Q6H PRN Discontinued sulfamethoxazole-trimethoprim 800-160 mg tablet 1 tab PO Q12H Qty: 14 0RF Discharge Orders: Discharge Order (Routine); Ordered 12/02/23 Ordered By: Ara Martinez Patient Education: Bartholin Cyst (GEN) Activity Detail: Nothing vaginally for 1 week. Discharge Diet: Regular Follow Up Appointments: Radha Florez PA-C [Primary Care Provider] - Patrica Singh MD [Staff Physician] - Forms: [employer] Info Instructions
[2023-12-02 11:11] VITALS: BP 121/64; PULSE 58; RESP 14; TEMP 37.1; O2SAT 99
[2023-12-02 15:00] VITALS: BP 120/70; PULSE 64; RESP 16; TEMP 36.7; O2SAT 100
--- NOTE | 2023-12-02 15:11 | PC.NURSE ---
Patient alert and orientedx4. Denies pain. Ambulates in the hallway with her father. Vital signs stable. No concerns from patient this shift
--- NOTE | 2023-12-02 17:08 | PC.NURSE ---
End of Shift: Patient pleasant and cooperative. Afebrile. Denies pain. Zosyn and Vanco infused this afternoon without difficulty. Patient up independently in room. Tolerating regular diet with no nausea. Patient discharged home at 1705 with all personal belongings accompanied by family. Discharge instructions including diagnosis, medications and follow up appointment discussed with patient and voiced understanding.
== END 2023-12-02 17:05 | disposition home or self-care (01) | DRG 759 ==
PROVIDERS: Admitting Provider Obstetrics & Gynecology; PCP Physician Assistant Medical; Visit Provider Obstetrics & Gynecology
DX: N75.1 Abscess of Bartholin's gland (principal)
CPT/HCPCS: 36415; 74178; 80053; 81001; 81003; 84702; 85025; 87040; 87086; A9270; J1885; J2543; J3370; J7050; J7120; Q9967

== ENCOUNTER 2024-01-01 07:24 | Day surgery (SDC) | payer OTHER, SELFPAY ==
[2024-01-01] VITALS (7 sets, daily range): BP systolic 107–130; BP diastolic 55–103; PULSE 48–84; RESP 16; TEMP 36.5–37.1; O2SAT 98–99; BMI 23.8
[2024-01-01 07:49] LABS: Ur HCG Qualitative* Negative (Negative)
[2024-01-01] MEDS: SODIUM CHLORIDE 0.9 % (FLUSH) 10 ML SYRINGE IVF (08:14)
[2024-01-01] MEDS: LACTATED RINGERS 1000 ML 1,000 ML 100 ML IV (08:14)
--- NOTE | 2024-01-01 09:21 | W.PM.GYNPROC ---
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 Surgeon: Patrica Singh MD Estimated blood loss (mL): 157 Pathology: specimen obtained, sent to pathology ( Right Bartholin's duct cyst and gland) Condition: stable Disposition: same day Findings: Evidence of prior marsupialization on the right, 1 mm opening just outside the vaginal introitus near the hymen. Firm Bartholin's duct gland, palpable deep to the surface. Otherwise normal female anatomy. Procedure Description: After obtaining informed consent, the patient was taken to the operating room where she received monitored anesthesia care. She was prepared draped in the, sterile fashion in the dorsal lithotomy position. An examination was performed under anesthesia with the findings noted above. The right Bartholin's duct was palpated, and opaque white discharge extruded from the marsupialized duct opening. A total of 16 mL 1% lidocaine was injected in to the right labia in the vicinity of the right Bartholin's duct and gland. The edge of the Marsupialized opening was grasped with a Gloria clamp and were a scalp was used to make a 10 mm incision in the labial starting at the opening. The skin edge was grasped with a Gloria clamp and the underlying cyst wall identified. This was also grasped, and a combination of blunt and sharp dissection using a Metzenbaum scissors was done to excise the cyst, which extended deep into the tissues. A probe was placed into the cyst to help delineate the proximal aspect of the cyst in gland. Electrocautery was then used to complete the excision proximally. The deep tissues were then reapproximated with a series of interrupted sutures of 2-0 Vicryl. Hemostasis was obtained. The incision extended during the dissection up right labia majora a distance of about 2 cm. The incision was reapproximated in a subcuticular fashion with 2-0 Vicryl. At the conclusion of the procedure, normal female anatomy was restored. There was some slight swelling noted of the right labia. Hemostasis was visualized. The patient tolerated the procedure well. Sponge, lap, needle, and instrument counts reported as correct x2. The patient was taken to the recovery room awake and in stable condition.
--- NOTE | 2024-01-01 10:56 | W.ANESCHARGE ---
Anesthesia Charges Start Date/Time Anesthesia Start Date: 01/01/24 Anesthesia Start Time: 09:16 Stop Date/Time Anesthesia Stop Date: 01/01/24 Anesthesia Stop Time: 10:55
--- NOTE | 2024-01-01 11:36 | W.ANESCHARGE ---
Anesthesia Charges Start Date/Time Anesthesia Start Date: 01/01/24 Anesthesia Start Time: 09:16 Stop Date/Time Anesthesia Stop Date: 01/01/24 Anesthesia Stop Time: 10:55
--- NOTE | 2024-01-01 11:43 | SUR.PHASEII ---
pt used bedside commode to void, pt states there was a lot of blood when she wiped. Checked op site, no active bleeding noted.
== END 2024-01-01 12:58 | disposition home or self-care (01) ==
PROVIDERS: PCP Physician Assistant Medical; Visit Provider Obstetrics & Gynecology
PROC: (CPT 56740; principal; 2024-01-01 08:45)
DX: N75.0 Cyst of Bartholin's gland (principal)
CPT/HCPCS: 56740; 00940; 81025; 88305; J1100; J1885; J2250; J2405; J2704; J3010; J3490; J7120

== ENCOUNTER 2024-04-14 09:44 | Outpatient (CLI) | payer OTHER, SELFPAY ==
--- OUTSIDE RECORDS SUMMARY | 2024-04-14 09:50 | XMS_ITS | Encounter Summary ---
Author Organization [facility] Address [address] [address] Phone Care Team Providers Care Land Classifier Name Role Phone Elsewhere, Pcp Primary Care Provider Unavailabl e Reason for Visit * Reason Comments Sinus Problem Encounter Details Date Type Department Care Team (Late st Contact Info) Description 02/20/2024 7:40 PM CDT Office Visit [facility] [address] [place] [phone] Hollie Mullins APRN, ANALYST [employer]OD [employer] BEVERAGE [address] [place], [place] [id number] Acute non-recurrent sinusitis, unspecified location (Primary Dx); Sore throat Social History Tobacco Use Types Packs/Day Years Used Date Smoking Tobacco: Never Smokeless Tobacco: Never Sex and Gender Information Value Date Recorded Sex Assigned at Not on file Gender Identity Not on file Sexual Orientation Not on file documented as of this encounter Last Filed Vital Signs Vital Sign Reading Time Taken Comments Blood Pressure 118/74 02/20/2024 7:53 PM CDT Pulse 76 02/20/2024 7:53 PM CDT Temperature 36.7 ??C (98 ??F) 02/20/2024 7:53 PM CDT Respiratory Rate - - Oxygen Saturation 99% 02/20/2024 7:53 PM CDT Inhaled Oxygen Concentration - - Weight 68.5 kg (151 lb) 02/20/2024 7:53 PM CDT Height - - Body Mass Index - - documented in this encounter Patient Instructions * Patient Instructions* Hollie Mullins APRN, ANALYST FOOD AND BEVERAGE - 02/20/2024 7:40 PM CDT This is likely all viral at this time. Recommend doing [id number] Flonase nasal spray and daily antihistamine such as Claritin. Both these medications will help open up the sinuses and reduce inflammation. Tylenol/ibuprofen as needed. Push fluids. Will do a one-time oral steroid dose in clinic today to help open up all the sinuses and to help with cough. Follow-up if symptoms persist or worsen. documented in this encounter Ordered Prescriptions Prescription Sig Dispensed Refills Start Date End Da te amoxicillin-clavulanate 875-125 MG oral tabletIndications:Infec tion Take 1 Tablet by mouth two times a day for 5 days. Indications: Infection 10 Tablet 02/20/2024 02/25/2024 documented in this encounter Progress Notes * Hollie Mullins APRN, CNP - 02/20/2024 7:40 PM CDT [facility] Office Visit Lenka Lucas is a 23 year old female who presents for Sinus Problem HPI Patient presents with cough, sinus pain, sinus pressure, fevers, sore throat, eye discharge, loss of voice. Symptoms started last Sunday. Eye crusting is just in the morning. Denies wheezing, trouble breathing, GI symptoms. No sick contacts reported. No history of asthma or lung disease. Has been taking [id number] Tylenol. Patient reports green nasal discharge and coughing up green sputum. Objective Jump to Vitals Flowsheets BP 118/74 (BP Location: Right arm, BP Patient Position: Sitting, Cuff Size: Adult Regular) Pulse 76 Temp 36.7 ??C (98 ??F) (Temporal) Wt 68.5 kg (151 lb) SpO2 99% Physical Exam Constitutional: Appearance: Normal appearance. HENT: Right Ear: Tympanic membrane, ear canal and external ear normal. Left Ear: Tympanic membrane, ear canal and external ear normal. Nose: Congestion present. No rhinorrhea. Mouth/Throat: Mouth: Mucous membranes are moist. Pharynx: Posterior oropharyngeal erythema present. Eyes: Conjunctiva/sclera: Conjunctivae normal. Cardiovascular: Rate and Rhythm: Normal rate and regular rhythm. Heart sounds: Normal heart sounds. Pulmonary: Effort: Pulmonary effort is normal. Breath sounds: Normal breath sounds. Lymphadenopathy: Cervical: No cervical adenopathy. Neurological: Mental Status: She is alert. Assessment/Plan 1. Acute non-recurrent sinusitis, unspecified location (Primary) - dexAMETHasone (Decadron) tablet 10 mg - amoxicillin-clavulanate 875-125 MG oral tablet; Take 1 Tablet by mouth two times a day for 5 days. Indications: Infection 2. Sore throat - STREP ANTIGEN SCREEN GRP A Plan: This is likely all viral at this time. Recommend doing [id number] Flonase nasal spray and daily antihistamine such as Claritin. Both these medications will help open up the sinuses and reduce inflammation. Tylenol/ibuprofen as needed. Push fluids. Will do a one-time oral steroid dose inclinic today to help open up all the sinuses and to help with cough. If symptoms persist or worsen in 3 days can start the antibiotic. Recommend not starting before this 3 days is up as your body is likely to heal this. Follow-up if symptoms persist or worsen. Treatment plan, diagnosis, medication administration, and medication side effects discussed with patient. All questions were encouraged and answered at this time. Patient and/or guardian in agreementwith plan. Patient was stable at time of discharge. Follow-up urgently if symptoms persist or worsen. documented in this encounter Miscellaneous Notes * Clinical Note - Mandy Woods - 02/20/2024 7:40 PM CDT Patient c/o cough, sinus pain and pressure, intermittent fevers, sore throat, eye mattery discharge, loss of voice X 1 week. documented in this encounter Plan of Treatment Not on file documented as of this encounter Procedures Procedure Name Priority Date/Time Associated Diagnosis Comments STREP ANTIGEN SCREEN GRP A Routine 02/20/2024 7:56 PM CDT Sore throat documented in this encounter Results * STREP ANTIGEN SCREEN GRP A (02/20/2024 7:56 PM CDT) Group A Strep Antigen Negative Negative 02/20/2024 8:06 PM CDT [facility] Swab STRUCTURE OF THROAT / Unknown Non-blood collection / Unknown 02/20/2024 7:56 PM CDT 02/20/2024 7:59 PM CDT Hollie Mullins SOCIAL WORKER PSYCHIATRIC, ANALYST FOOD [employer] BEVERAGE EC MICROBIOLOGY - GENERAL ORDERABLES [facility] [address] [place] [address] documented in this encounter Visit Diagnoses Diagnosis Acute non-recurrent sinusitis, unspecified location- Primary Sore throat Acute pharyngitis documented in this encounter Administered Medications Inactive Administered Medications Medication Order MAR Action Action Date Dose Rate Site dexAMETHasone (Decadron) tablet 10 mg 10 mg, Oral, ONCE, 1 dose, On Sun02/20/24 at 2030 Given 02/20/2024 8:12 PM CDT 10 mg documented in this encounter Historical Medications * This list may reflect changes made after this encounter. Medication Sig Dispensed Refills Start Date End Date etonogestrel (Nexplanon) 68 MG Implant Inject 1 Each under the skin. 02/18/2023 added in this encounter Care Teams Land Classifier Relationship Specialty Start Date End Date Elsewhere, Pcp PCP - General 02/20/24 documented as of this encounter
--- OUTSIDE RECORDS SUMMARY | 2024-04-14 09:50 | XMS_ITS | Encounter Summary ---
Author Organization [facility] Address [address] [place] [address]. [place] [address] Care Team Providers Care Pond Worker Name Role Phone No Ref-Primary, Physician Primary Care Provider Encounter Details Date Type Department Care Team (Latest Contact Info) Description 01/27/2024 Travel Social History Tobacco Use Types Packs/Day Years [...] on file documented as of this encounter Plan of Treatment Not on file documented as of this encounter Visit Diagnoses Not on filedocumented in this encounter Care Teams Pond Worker Relationship Specialty Start Date End Date No Ref-Primary, Physician PCP - General 01/20/22 documented as of this encounter
--- OUTSIDE RECORDS SUMMARY | 2024-04-14 09:50 | XMS_ITS | Clinical Summary ---
Author Organization [facility] Address [address] [place] [address] Care Team Providers Care Photovoltaic Fabrication Technician Name Role Phone No Ref-Primary, Physician Primary Care Provider Allergies No known active allergies Medications Medication Sig Dispensed Refills Start Date End Date Status etonogestrel (NEXPLANON) 68 MG IMPL Inject 1 each Subcutaneous 02/18/2023 Active Encounters Date Type Department Care Team Description 01/27/2024 11:00 AM CDT Office Visit [facility] [place] [address] [facility] [address] [place] [address] Luann Riojas PA-C Dysuria (Primary Dx); Acute cystitis with hematuria 01/27/2024 Travel from Last 3 Months Immunizations Name Administration Dates Next Due Comvax [...] Vaccine 2-49 (FluMist) 3 Pneumococcal (PCV 7) 09/13/2004,03/19/20,01/15/2003,11/20 Poliovirus, inactivated (IPV) 10/07/2007 ,07/01/2003,01/15/2003,11/20 TDAP (Adacel,Boostrix) [...] Pressure 110/66 01/20/2022 11:34 AM CDT Pulse 66 01/27/2024 11:09 AM CDT Temperature 37 ??C (98.6 ??F) 01/27/2024 11:09 AM CDT Respiratory Rate - - Oxygen Saturation 99% 01/27/2024 11:09 AM CDT Inhaled Oxygen Concentration - - Weight 66.5 kg (146 lb 9.6 oz) 01/27/2024 11:09 AM CDT Height - - Body Mass Index - - Plan of Treatment Health Maintenance Due Date Last Done Comments ADVANCE CARE PLANNING 2002 ANNUAL REVIEW OF HM ORDERS 2002 CHLAMYDIA SCREENING 2002 YEARLY PREVENTIVE VISIT 2002 HIV SCREENING 2017 HPV IMMUNIZATION (1 - 3-dose series) 2017 HEPATITIS C SCREENING 2020 COVID-19 Vaccine (2 - season) 2023 04/05/2023 PAP 2023 PHQ-2 (once per calendar year) 2023 INFLUENZA VACCINE (Season Ended) 2024 08/01/2022, 09/15/2020, 08/22/2017, Additional history exists DTAP/TDAP/TD IMMUNIZATION (7 - Td or Tdap) 10/09/2024 10/09/2014, 09/16/2007, 12/29/2003, Additional history exists HEPATITIS B IMMUNIZATION Completed 003, 01/15/2003, 01/15/2003, Additional history exists Pneumococcal Vaccine: Pediatrics (0 to 5 Years) and At-Risk Patients (6 to 64 Years) Aged Out 09/13/2004, 09/13/2004, 03/19/2003, Additional history exists No longer eligible based on patient's age to complete this topic IPV IMMUNIZATION Completed 10/07/2007, 12/2002, 01/15/2003, Additional history exists MENINGITIS IMMUNIZATION Completed 11/10/19, 10/09/2014, 10/09/2014 RSV MONOCLONAL ANTIBODY Aged Out No l onger eligible based on patient's age to complete this topic Procedures Procedure Name Priority Date/Time Associated Diagnosis Comments URINE CULTURE Routine 01/27/2024 11:01 AM CDT Dysuria URINE MICROSCOPIC EXAM Routine 01/27/2024 11:01 AM CDT Dysuria UA MACROSCOPIC WITH REFLEX TO MICRO AND CULTURE Routine 01/27/2024 11:01 AM CDT Dysuria from Last 3 Months Results * (ABNORMAL) UA Macroscopic with reflex to Microscopic and Culture - Clinic Collect (01/27/2024 11:01AM CDT) Color Urine Yellow Colorless, Straw, Light Yellow, Yellow 01/27/2024 11:12 AM CDT [facility] Appearance Urine Cloudy(A) Clear 01/27/20 24 11:12 AM CDT [facility] Glucose Urine Negative Negative mg/dL 01/27/2024 11:12 AM CDT [facility] Bilirubin Urine Negative Negative 11:12 AM CDT [facility] Ketones Urine 15(A) Negative mg/dL 01/27/2024 11:12 AM CDT [facility] Specific [place] Urine >=1.030 1.003 - 1.035 01/27/2024 11:12 AM CDT [facility] Blood Urine Large(A) Negative 01/27/2024 11:12 AM CDT [facility] pH Urine 5.5 5.0 - 7.0 01/27/2024 11:12 AM CDT [facility] Protein Albumin Urine >=300(A) Negative mg/dL 01/27/2024 11:12 AM CDT [facility] Urobilinogen Urine 0.2 0.2, 1.0 E.U./dL 01/27/2024 11:12 AM CDT [facility] Nitrite Urine Positive(A) Negative 01/27/2024 11:12 AM CDT [facility] Leukocyte Esterase Urine Small(A) Negative 01/27/2024 11:12 AM CDT [facility] Urine MID-STREAM URINE SPECIMEN / Unknown Non-blood Collection / Unknown 01/27/2024 11:01 AM CDT 01/27/2024 11:10 AM CDT George Clements MD LAB - URINE ORDERABL ES [facility] [address] [facility] [place] [address], [facility] [phone] * (ABNORMAL) Urine Microscopic Exam (01/27/2024 11:01 AM CDT) Bacteria Urine Many(A) None Seen /HPF JULIAN 01/27/2024 11:22 AM CDT [facility] RBC Urine 10-25(A) 0-2 /HPF /HPF JULIAN 01/27/2024 11:22 AM CDT [facility] WBC Urine 5-10(A) 0-5 /HPF /HPF JULIAN 01/27/2024 11:22 AM CDT [facility] Squamous Epithelials Urine Few(A) None Seen /LPF JULIAN 01/27/2024 11:22 AM CDT [facility] Urine MID-STREAM URINE SPECIMEN / Unknown Non-blood Collection / Unknown 01/27/2024 11:01 AM CDT 01/27/2024 11:10 AM CDT George Clements MD LAB - URINE ORDERABL ES [facility] [address] [facility] [facility] [place] [address], [facility] [phone] * (ABNORMAL) Urine Culture (01/27/2024 11:01 AM CDT) [facility] Culture 50,000-100,000 CFU/mL Escherichia coli(A) JULIAN 01/30/2024 10:45 AM CDT [facility] Culture 10,000-50,000 CFU/mL Urogenital dinesh 01/30/2024 10:45 AM CDT [facility] Urine MID-STREAM URINE SPECIMEN / Unknown Non-blood Collection / Unknown 01/27/2024 11:01 AM CDT 01/27/2024 11:12 AM CDT Narrative Organism Antibiotic Method Susceptibility Escherichia coli Ampicillin JULIAN <=2 ug/mL: Susceptible Escherichia coli Ampicillin/ Sulbactam JULIAN <=2 ug/mL: Susceptible Escherichia coli Piperacillin/Tazobactam JULIAN <=4 ug/mL: Susceptible Escherichia coli Cefazolin JULIAN <=4 ug/mL: Susceptible Comment:Cefazolin NC C breakpoints are for the treatment of uncomplicated urinary tract infections. For the treatment of systemic infections, please contact the laboratory for additional testing. Escherichia coli Cefoxitin JULIAN <=4 ug/mL: Susceptible Escherichia coli Ceftazidime JULIAN <=1 ug/mL: Susceptible Escherichia coli Ceftriaxone JULIAN <=1 ug/mL: Susceptible Escherichia coli Cefepime JULIAN <=1 ug/mL: Susceptible Escherichia coli Gentamicin JULIAN <=1 ug/mL: Susceptible Escherichia coli Tobramycin JULIAN <=1 ug/mL: Susceptible Escherichia coli Ciprofloxacin JULIAN <=0.25 ug/mL: Susceptible Escherichia coli Levofloxacin JULIAN <=0.12 ug/mL: Susceptible Escherichia coli Nitrofurantoin JULIAN <=16 ug/mL: Susceptible Escherichia coli Trimethoprim/Sulfamethoxazole JULIAN <=1/19 ug/mL: Susceptible George Clements MD LAB - MICRO GENERAL ORDERABLES [facility] [address] [facility] [place] [address], [facility] from Last 3 Months Care Teams Photovoltaic Fabrication Technician Relationship Specialty Start Date End Date No Ref-Primary, Physician PCP - General 01/20/22
--- OUTSIDE RECORDS SUMMARY | 2024-04-14 09:50 | XMS_ITS | Encounter Summary ---
Author Organization [facility] Address [address] [place] [address] Care Team Providers Care Low Voltage Electrician Name Role Phone Unassigned, Provider Primary Care Provider Unava ilable Reason for Visit * Reason Comments Pharyngitis Encounter Details Date Type Department Care Team (Late st Contact Info) Description 02/25/2024 9:20 AM CDT Office Visit [facility] [address] [facility] [address] [place] [phone] Mikhail Best PA-C [address] [place] [address] Pharyngitis, unspecified etiology; Strep pharyngitis Social History Tobacco Use Types Packs/Day Years Used Date Smoking Tobacco: Never Smokeless Tobacco: Never Sex and Gender Information Value Date Recorded Sex Assigned at Not on file Gender Identity Not on file Sexual Orientation Not on file documented as of this encounter Last Filed Vital Signs Vital Sign Reading Time Taken Comments Blood Pressure 129/80 02/25/2024 8:49 AM CDT Pulse 77 02/25/2024 8:49 AM CDT Temperature 37.2 ??C (98.9 ??F) 02/25/2024 8:49 AM CD T Respiratory Rate 16 02/25/2024 8:49 AM CDT Oxygen Saturation 98% 02/25/2024 8:49 AM CDT Inhaled Oxygen Concentration - - Weight - - Height - - Body Mass Index - - documented in this encounter Patient Instructions * Patient Instructions* Mikhail Best PA-C - 02/25/2024 9:20 AM CDT Prednisone 2 tabs daily for 5 days Augmentin twice daily for 10 days documented in this encounter Progress Notes * Mikhail Best PA-C - 02/25/2024 9:[address] on and off for [address] worse today. Patient requests an excuse letter for work/school: Yes Patient presents to the urgent care complaining of a sore throat on and off for the past three weeks. She had a fever initially which has resolved. Remainder of review of systems is negative. Past Medical History: There is no problem list on file for this patient. Adverse Drug Reactions: Miconazole Medications: clindamycin, etonogestrel, and tretinoin Family History: No family history on file. Social History: Social History Tobacco Use Smoking status: Never Smokeless tobacco: Never Vaping Use Vaping status: Never Used Substance Use Topics Alcohol use: Not on file Drug use: Not on file Review of Systems: All systems were reviewed and found to be negative except as noted above. OBJECTIVE: General: NAD Skin: Mucous membranes are moist, no sign of dehydration. Head: Normocephalic. Eyes: PERRLA, full EOM. External exams normal. Ears: Normal pinnae, canals. TM's:[normal] Nose: Patent, without deformity. Throat: Moist mucous membranes. Oropharynx shows bilateral tonsillar enlargement with exudate. Respiratory: Normal respiratory effort. Lungs are clear with good breath sounds. Heart: RR without murmurs, rubs, or gallops. Vital Signs: BP 129/80 (BP Location: Right Arm, BP Cuff Size: Regular) Pulse 77 Temp 37.2 ??C (98.9 ??F) (Oral) Resp 16 SpO2 98% Orders Placed This Encounter STREP GROUP A, Molecular Detection-Collect Now in current encounter Labs: Results for orders placed or performed in visit on 02/25/24 STREP GROUP A, Molecular Detection-Collect Now in current encounter Result Value Ref Range Group A Strep Detected (A) Not Detected ASSESSMENT: 1. Pharyngitis, unspecified etiology 2. Strep pharyngitis Medical Decision Makin-year-old female presenting with sore throat on and off for the past 3 weeks. Physical exam shows bilateral tonsillar enlargement with exudate. Patient was placed on Augmentin prior to her strep result being obtained. Augmentin at that time was chosen to cover tonsillitis. Her strep did return positive. Patient will be left on Augmentin. She should return to urgent carewith any ongoing or worsening of her symptoms. PLAN: Orders Placed This Encounter STREP GROUP A, Molecular Detection-Collect Now in current encounter amoxicillin-clavulanate (AUGMENTIN) 875-125 mg per tablet predniSONE (DELTASONE) 20 MG tablet There are no Patient Instructions on file for this visit. Orders Placed This Encounter Medications etonogestrel (NEXPLANON) 68 MG implant Sig: Inject 68 mg subcutaneously once. RTC p.r.n. Total visit time was 25 minutes. documented in this encounter Nursing Notes * Izabella Bautista RN - 02/25/2024 9:[address] on and off for [address] worse today. Patient requests an excuse letter for work/school: Yes documented in this encounter Plan of Treatment Not on file documented as of this encounter Procedures Procedure Name Priority Date/Time Associated Diagnosis Comments STREP GROUP A, MOLECULAR DETECTION STAT 02/25/2024 8:44 AM CDT Pharyngitis, unspecified etiology documented in this encounter Results * (ABNORMAL) STREP GROUP A, Molecular Detection-Collect Now in current encounter (02/25/2024 8:44 AM CDT) Group A Strep Detected( A) Not Detected 02/25/2024 9:17 AM CDT [facility] Comment:Methodology: Qualita tive real-time PCR assay Swab (Source Required) THROAT SWAB / Unknown Non-blood Collection / Unknown 02/25/2024 8:44 AM CDT 02/25/2024 8:52 AM CDT [facility] [address] [place] [address], [facility] documented in this encounter Visit Diagnoses Diagnosis Pharyngitis, unspecified etiology Strep pharyngitis Streptococcal sore throat documented in this encounter Care Teams Low Voltage Electrician Relationship Specialty Start Date End Date Unassigned, Provider [address] [place] [address] PCP - General 02 documented as of this encounter
--- OUTSIDE RECORDS SUMMARY | 2024-04-14 09:50 | XMS_ITS | Encounter Summary ---
Author Organization [facility] Address [address] [address] Phone Care Team Providers Care Donor Support Technician Name Role Phone Elsewhere, Pcp Primary Care Provider Unavailabl e Encounter Details Date Type Department Care Team (Latest Contact Info) Description 02/20/2024 Travel Social History Tobacco Use Types Packs/Day [...] on filedocumented in this encounter Care Teams Donor Support Technician Relationship Specialty Start Date End Date Elsewhere, Pcp PCP - General 02/20/24 documented as of this encounter
--- OUTSIDE RECORDS SUMMARY | 2024-04-14 09:50 | XMS_ITS | Clinical Summary ---
Author Organization [facility] Address [address] [address] Care Team Providers Care Camera Assembler Name Role Phone Unassigned, Provider Primary Care Provider Unava ilable Source Comments You are receiving this document as you are listed as the primary care provider,follow-up provider, or the patient has been referred to you for consultation.This is in compliance with the Medicare andMedicaid EHR Incentive Program,which states Providers who transition their patient to another setting of careor provider of care or refers their patient to another provider of care shouldprovide summary care record for each transition of care or referral. [facility] Allergies Active Allergy Reactions Criticality Noted Date Comments Miconazole Other, see comments High 02/25/2024 Gets labia swelling and itching Medications Medication Sig Dispensed Refills Start Date End Date Status tretinoin (RETIN-A) 0.025 % cream Apply topically every evening. Active clindamycin (CLEOCIN T) 1 % gel Apply topically two times a day. Active etonogestrel (NEXPLANON) 68 MG implant Inject 68 mg subcutaneously once. Active predniSONE (DELTASONE) 20 MG tablet 2 tabs po qd x 5 days 10 Tablet 02/25/2024 Active Encounters Date Type Department Care Team Description 02/25/2024 9:20 AM CDT Office Visit [facility] [address] [facility] [address] [place] [address] Mikhail Best, PAAneeshC Pharyngitis, unspecified etiology; Strep pharyngitis from Last 3 Months Social History Tobacco Use Types Packs/Day Years [...] Health Maintenance Due Date Last Done Comments Cervical Cancer Screening Due 2002 Chlamydia 2002 Hep C Screening (Preventive Services) 2002 HPV Vaccine (1 - 3-dose series) 2017 HIV Screening (Preventive Services) 2018 Adult Preventive Visit 2020 HepB (1) 2021 COVID-19 Vaccine (2 - season) 2023 04/05/2023 Influenza (Season Ended) 2024 022, 09/15/2020, 08/22/2017, Additional history exists DTaP/Tdap/Td (7 - Tdap) 10/09/2024 10/09/20 14, 09/16/2007, 12/29/2003, Additional history exists Zoster/Shingles (1 of 2) 2052 Hib Completed 12/29/2003, 12/28, 2002 Pneumococcal Aged Out 09/13/2004, 02/27, 01/15/2003, Additional history exists No longer eligible based on patient's age to complete this topic HepA Completed 10/07/2007, 09/11/2006 IPV (Polio) Completed 10/07/2007, 12/2002, 01/15/2003, Additional history exists MCV4 Completed 11/10/2020, 10/09/2014 Procedures Procedure Name Priority Date/Time Associated Diagnosis Comments STREP GROUP A, MOLECULAR DETECTION STAT 02/25/2024 8:44 AM CDT Pharyngitis, unspecified etiology from Last 3 Months Results * (ABNORMAL) STREP GROUP A, Molecular Detection-Collect Now in current encounter (02/25/2024 8:44 AM CDT) Group A Strep Detected( A) Not Detected 02/25/2024 9:17 AM CDT [facility] Comment:Methodology: Qualita tive real-time PCR assay Swab (Source Required) THROAT SWAB / Unknown Non-blood Collection / Unknown 02/25/2024 8:44 AM CDT 02/25/2024 8:52 AM CDT [facility] [address] [place] [address], [facility] from Last 3 Months Care Teams Camera Assembler Relationship Specialty Start Date End Date Unassigned, Provider [address] [place] [address] PCP - General 02
--- OUTSIDE RECORDS SUMMARY | 2024-04-14 09:50 | XMS_ITS | Referral Summary ---
Author Organization [place] Address [address] [place] [address] Care Team Providers Care Franchise Development Manager Name Role Phone No Ref-Primary, Physician Primary Care Provider Encounters Date Type Department Care Team Description 01/27/2024 Travel 01/27/2024 11:00 AM CDT Office Visit [facility] [place] [address] [facility] [address] [place] [address] Luann Riojas PA-C Dysuria (Primary Dx); Acute cystitis with hematuria from Last 3 Months Allergies No known active allergies Medications Medication Sig Dispensed Refills Start Date End Date Status etonogestrel (NEXPLANON) 68 MG IMPL Inject 1 each Subcutaneous 02/18/2023 Active Immunizations Name Administration Dates Next Due Comvax [...] - Plan of Treatment Not on file Procedures Procedure Name Priority Date/Time Associated Diagnosis [...] [facility] Appearance Urine Cloudy(A) Clear 01/27/20 11:12 AM CDT [facility] Glucose Urine Negative Negative mg/dL 01/27/2024 11:12 AM CDT [facility] Bilirubin Urine Negative Negative 11:12 AM CDT [facility] Ketones Urine 15(A) Negative mg/dL 01/27/2024 11:12 AM CDT [facility] Specific [place] Urine >=1.030 1.003 - 1.035 01/27/2024 11:12 [...] Clements MD LAB - URINE ORDERABL ES LABORATORY [facility] [place] [facility] [address] [place] [address] [address] [place] [address], [facility] [phone] * (ABNORMAL) Urine Microscopic Exam (01/27/2024 11:01 [...] Clements MD LAB - URINE ORDERABL ES Performing Organization Address [facility]/State/ZIP Co de Phone Number LABORATORY [facility] [place] [facility] [address] [place] [address] [address] [place] [address], [facility] [phone] * (ABNORMAL) Urine Culture (01/27/2024 11:01 AM CDT) Culture 50,000-100,000 CFU/mL Escherichia coli(A) JULIAN 01/30/2024 [...] coli Cefazolin JULIAN <=4 ug/mL: Susceptible Comment:Cefazolin [place] C breakpoints are for the treatment of [...] - MICRO GENERAL ORDERABLES [facility] IDD LABORATORY [facility] Inf. Diseases Diag. Lab [address] [facility] [place] [address], [facility] from Last 3 Months Care Teams Franchise Development Manager Relationship Specialty Start Date End Date No Ref-Primary, Physician PCP - General 01/20/22
--- OUTSIDE RECORDS SUMMARY | 2024-04-14 09:50 | XMS_ITS | Clinical Summary ---
Author Organization [facility] Address [address] [address] Phone Care Team Providers Care Bindery Machine Tender Name Role Phone Elsewhere, Pcp Primary Care Provider Unavailabl e Allergies Active Allergy Reactions Criticality Noted Date Comments Miconazole Unknown 02/18/2023 Patient states it does the opposite of what it should be doing Medications Medication Sig Dispensed Refills Start Date End Date Status etonogestrel (Nexplanon) 68 MG Implant Inject 1 Each under the skin. 02/18/2023 Active Active Problems Problem Noted Date Diagnosed Date Constipation 02/20/2024 Encounters Date Type Department Care Team Description 02/20/2024 7:40 PM CDT Office Visit [facility] [address] [place] [address] Hollie Mullins, DRY MILL WORKER, WILDERNESS GUIDE Acute non-recurrent sinusitis, unspecified location (Primary Dx); Sore throat 02/20/2024 Travel from Last 3 Months Social History Tobacco [...] Date Last Done Comments Cervical Cancer Screening 2002 Last pap w/ HPV Testing 2002 Last pap w/o HPV Testing 2002 HPV Vaccine (Standing Order) (1 - 3-dose series) 2017 Chlamydia Screening 2018 Hepatitis B Vaccine (Standin g Order) (1 of 3 - 19+ 3-dose series) 2021 PERTUSSIS (Standing Order) 2021 TETANUS (Standing Order) 2021 Influenza Vaccine Seasonal (Standing Order) (#1) 2023 Pneumococcal/PCV20 Vaccine: Pediatrics (2-5 yrs) and At-Risk Patients (6-64 yrs) (Standing Order) Aged Out No longer eligible b ased on patient's age to complete this topic Procedures Procedure Name Priority Date/Time Associated Diagnosis Comments STREP ANTIGEN SCREEN GRP A Routine 02/20/2024 7:56 PM CDT Sore throat from Last 3 Months Results * STREP ANTIGEN SCREEN GRP A (02/20/2024 7:56 PM CDT) Group A Strep Antigen Negative Negative 02/20/2024 8:06 PM CDT [facility] Swab STRUCTURE OF THROAT / Unknown Non-blood collection / Unknown 02/20/2024 7:56 PM CDT 02/20/2024 7:59 PM CDT Hollie Mullins DRY MILL WORKER, WILDERNESS GUIDE EC MICROBIOLOGY - GENERAL ORDERABLES Performing Organization Address City/State/[facility] Co de Phone Number [facility] [address] [place] [address], [facility] [phone] from Last 3 Months Care Teams Bindery Machine Tender Relationship Specialty Start Date End Date Elsewhere, Pcp PCP - General 02/20/24
--- OUTSIDE RECORDS SUMMARY | 2024-04-14 09:50 | XMS_ITS | Clinical Summary ---
Author Organization [facility] Address [place], [place] [address] Care Team Providers Care Local Coordinator Name Role Phone Dennis Leone MD Primary Care Provider Allergies Active Allergy Reactions Criticality Noted Date Comments Miconazole *Unknown 02/18/2023 Patient states it does the opposite of what it should be doing Medications Medication Sig Dispensed Refills Start Date End Date Status etonogestrel subdermal implant (Nexplanon) 68 mg implant Inject 1 Each subdermal one time for 1 dose. 1 Each 02/18/2023 Active cefdinir (OMNICEF) 300 mg capsuleIndications :Non-recurrent acute suppurative otitis media of right ear without spontaneous rupture of tympanic membrane Take 1 Capsule (300 mg) by mouth two times daily for 5 days. 10 Capsule 03/15/2024 03/20/2024 Active Problems Problem Noted Date Diagnosed Date Constipation Encounters Date Type Department Care Team Description 03/17/[address] [facility] [phone] Akiko Louise MD 03/15/2024 3:40 PM CDT Office Visit [facility] [address] [place] [address] Coleen Koenig NP Ear Problem (Right ear pain onset early this AM after swimming in [place]) 03/15/2024 Travel from Last 3 Months Immunizations Name Administration Dates Next Due DTaP [...] Tobacco: Never Alcohol Use Standard Drinks/Week Comments Not Currently 0 (1 standard drink = 0.6 oz pure alcohol) socially; mostly beer or wine, seltzer Social Connections Answer Date Recorded Frequency of Communication with Friends and Fami ly Not on file 01/05/2023 Sex and Gender Information Value Date Recorded Sex Assigned at Not on file Gender Identity Not on file Sexual Orientation Not on file Obstetrics History Last Filed Vital Signs Vital Sign Reading Time Taken Comments Blood Pressure 108/76 03/15/2024 3:53 PM CDT Pulse 73 03/15/2024 3:53 PM CDT Temperature 37.1 ??C (98.7 ??F) 03/15/2024 3:53 PM CD T Respiratory Rate 16 03/15/2024 3:53 PM CDT Oxygen Saturation 99% 03/15/2024 3:53 PM CDT Inhaled Oxygen Concentration - - Weight 69.5 kg (153 lb 3.2 oz) 03/15/2024 3:53 P M CDT Height 163.8 cm (5' 4.5) 05/20/2023 12:44 AM CD T Body Mass Index - - Plan of Treatment Health Maintenance Due Date Last Done Comments Depression screening for age 12+ 2014 HIV for age 15-65 2017 HPV series for age 9-26 (1 - 3-dose series) 2017 Hepatitis C screening for age 18-79 2020 COVID-19 vaccine series ( season) 2023 04/05/2023 Pap test for age 21-65 2023 BMI (ht and wt on same day) for age 18+ 02/19/2024 02/18/2023 Influenza for age 9-49 06/29/2024 , 09/15/2020, 08/22/2017, Additional history exists Tetanus booster 10/09/2024 10/09/2014 Pneumococcal series for age 6-64 Aged Out 09/13/2004, 03/19/2003, 01/15/2003, Additional history exists No longer eligible based on patient's age to complete this topic Tdap Completed 10/09/2014 Meningococcal series for age 11-21 Completed 11/10/2020, 10/09/2014 Procedures Procedure Name Priority Date/Time Associated Diagnosis Comments QFT MITOGEN PERFORMABLE Routine 03/14/2024 9:39 AM CDT QFT TB2 PERFORMABLE Routine 03/14/2024 9 :39 AM CDT QFT TB1 PERFORMABLE Routine 03/14/2024 9 :39 AM CDT QUANTIFERON TB GOLD PLUS Routine 03/14/2024 9:39 AM CDT QUANTIFERON TB GOLD PLUS Routine 03/14/2024 9:39 AM CDT from Last 3 Months Results * QFT MITOGEN PERFORMABLE (03/14/2024 9:39 AM CDT) MITOGEN 10.00 IU/mL 03/18/2024 9:05 AM CDT [facility] Blood BLOOD SPECIMEN / Unknown Client Collect / Unknown 03/14/2024 9:39 AM CDT 03/17/2024 1:52 PM CDT Akiko Louise MD CHEMISTRY Performing Organization Address City/[facility]/ZIP Co de Phone Number [facility] [address] [place] [address], * QFT TB2 PERFORMABLE (03/14/2024 9:39 AM CDT) TB2 0.03 IU/mL 03/18/2024 9:05 AM CDT [facility] Blood BLOOD SPECIMEN / Unknown Client Collect / Unknown 03/14/2024 9:39 AM CDT 03/17/2024 1:52 PM CDT Akiko Louise MD CHEMISTRY Performing Organization Address City/[facility]/ZIP Co de Phone Number [facility] [address] [place] [address], * QFT TB1 PERFORMABLE (03/14/2024 9:39 AM CDT) TB1 0.02 IU/mL 03/18/2024 9:05 AM CDT [facility] Blood BLOOD SPECIMEN / Unknown Client Collect / Unknown 03/14/2024 9:39 AM CDT 03/17/2024 1:52 PM CDT Akiko Louise MD CHEMISTRY Performing Organization Address City/[facility]/ZIP Co de Phone Number [facility] [address] [place] [address], * QUANTIFERON TB GOLD PLUS (03/14/2024 9:39 AM CDT) QFTP NIL 0.02 03/18/2024 9:31 AM CDT [facility] TB1 0.02 IU/mL 03/18/2024 9:31 AM CDT [facility] TB2 0.03 IU/mL 03/18/2024 9:31 AM CDT [facility] MITOGEN 10.00 IU/mL 03/18/2024 9:31 AM CDT [facility] QFTP TB AG1 - NIL 0.00 024 9:31 AM CDT [facility] TB1-NIL % OF NIL 0 % 03/18/20 9:31 AM CDT [facility] QFTP TB AG2 - NIL 0.01 024 9:31 AM [facility] TB2-NIL % OF NIL 50 % 03/18/20 9:31 AM T [facility] QFTP MITOGEN - NIL 9.98 2023 9:31 AM [facility] QFTP QUANTIFERON INTERPRETATION Negative Negative 03/18/2024 9:31 AM T [facility] Blood BLOOD SPECIMEN / Unknown Client Collect / Unknown 03/14/2024 9:39 AM CDT 03/17/2024 1:52 PM CDT [facility] - 03/18/2024 9:31 AM CDT M. tuberculosis infection not likely, but cannot be excluded in cases of immunosuppression. CAUTION: The performance of QuantiFERON-TB Gold Plus has not been evaluated in specimens from: - Individuals with impaired or altered immune factors (HIV infections, transplant patients, those receieving immunosuppressive drugs such as corticosteroids) and those with other clinical conditions (e.g., diabetes, hematological disorders). - Individuals younger than 17 years old. ??Refer to CDC website for testing recommendations in children 6-17 years old. - women Akiko Louise MD CHEMISTRY [facility] [address] [place] [address], from Last 3 Months Care Teams Local Coordinator Relationship Specialty Start Date End Date Dennis Leone MD [address], [facility] [address] [place] [address] PCP - General 06/27/10
--- OUTSIDE RECORDS SUMMARY | 2024-04-14 09:51 | XMS_ITS | Encounter Summary ---
Author Organization [place] Address [address] [place] [address]. [place] [address] Care Team Providers Care Virginia Line Attendant Name Role Phone No Ref-Primary, Physician Primary Care Provider Reason for Visit * Reason Comments POSS UTI ONSET OF DYSURIA LAS T NIGHT PT IS UNABLE TO PERFORM A WET PREP DUE TO HAVING A VAGINAL GLAND REMOVED AND UNABLE TO STICK ANYTHING INSIDE HER DUE TO SURGERY AND STICHES. Encounter Details Date Type Department Care Team (Late st Contact Info) Description 01/27/2024 11:00 AM CDT Office Visit [facility] [address] [place] [address] Luann Riojas PA-C [address] [place] [id number] Dysuria (Primary Dx); Acute cystitis with hematuria Social History Tobacco Use Types Packs/Day Years [...] Sign Reading Time Taken Comments Blood Pressure - - Pulse 66 01/27/2024 11:09 AM CDT Temperature 37 ??C (98.6 ??F) 01/27/2024 11:09 AM CDT Respiratory Rate - - Oxygen Saturation 99% 01/27/2024 11:09 AM CDT Inhaled Oxygen Concentration - - Weight 66.5 kg (146 lb 9.6 oz) 01/27/2024 11:09 AM CDT Height - - Body Mass Index - - documented in this encounter Progress Notes * Luann Riojas PA-C - 01/27/2024 11:00 AM CDT Assessment & Plan Dysuria - UA Macroscopic with reflex to Microscopic and Culture - Clinic Collect - Wet prep - Clinic Collect - Urine Microscopic Exam - Urine Culture Acute cystitis with hematuria -Macrobid and pyridium sent -recommend follow-up with PCP in 3-4 weeks to ensure RBC clearance from UA -push fluids -tylenol/motrin as needed -discussed alarm signs and symptoms to monitor for and discussed when to be reevaluated in the UC or ED - nitroFURantoin macrocrystal-monohydrate (MACROBID) 100 MG capsule; Take 1 capsule (100 mg) by mouth 2 times daily for 7 days - phenazopyridine (PYRIDIUM) 100 MG tablet; Take 1 tablet (100 mg) by mouth 3 times daily as neededfor urinary tract discomfort No follow-ups on file. Subjective Shayy is a 23 year old, presenting for the following health issues: POSS UTI (ONSET OF DYSURIA LAST NIGHT PT IS UNABLE TO PERFORM A WET PREP DUE TO HAVING A VAGINAL GLAND REMOVED AND UNABLE TO STICK ANYTHING INSIDE HER DUE TO SURGERY AND STICHES. ) -dysuria for the past 24 hours -pain with urinating, some blood in her urine and some low abdominal pain -no fevers -some nausea -LMP unknown due to Nexplanon -no flank pain Objective Pulse 66 Temp 98.6 ??F (37 ??C) Wt 66.5 kg (146 lb 9.6 oz) SpO2 99% There is no height or weight on file to calculate BMI. Physical Exam GENERAL: alert and no distress NECK: no adenopathy, no asymmetry, masses, or scars RESP: lungs clear to auscultation - no rales, rhonchi or wheezes CV: regular rate and rhythm, normal S1 S2, no S3 or S4, no murmur, click or rub, no peripheral edema ABDOMEN: soft, nontender, no hepatosplenomegaly, no masses and bowel sounds normal. No CVAT MS: no gross musculoskeletal defects noted, no edema Results for orders placed or performed in visit on 01/27/24 (from the past 24 hour(s)) UA Macroscopic with reflex to Microscopic and Culture - Clinic Collect Specimen: Urine, Midstream Result Value Ref Range Color Urine Yellow Colorless, Straw, Light Yellow, Yellow Appearance Urine Cloudy (A) Clear Glucose Urine Negative Negative mg/dL Bilirubin Urine Negative Negative Ketones Urine 15 (A) Negative mg/dL Specific [place] Urine >=1.030 1.003 - 1.035 Blood Urine Large (A) Negative pH Urine 5.5 5.0 - 7.0 Protein Albumin Urine >=300 (A) Negative mg/dL Urobilinogen Urine 0.2 0.2, 1.0 E.U./dL Nitrite Urine Positive (A) Negative Leukocyte Esterase Urine Small (A) Negative Urine Microscopic Exam Result Value Ref Range Bacteria Urine Many (A) None Seen /HPF RBC Urine 10-25 (A) 0-2 /HPF /HPF WBC Urine 5-10 (A) 0-5 /HPF /HPF Squamous Epithelials Urine Few (A) None Seen /LPF Signed Electronically by: Luann Riojas PA-C documented in this encounter Plan of Treatment Not on file documented as of this encounter Procedures Procedure Name Priority Date/Time Associated Diagnosis Comments UA MACROSCOPIC WITH REFLEX TO MICRO AND CULTURE Routine 01/27/2024 11:01 AM CDT Dysuria URINE MICROSCOPIC EXAM Routine 01/27/2024 11:01 AM CDT Dysuria URINE CULTURE Routine 01/27/2024 11:01 AM CDT Dysuria documented in this encounter Results * (ABNORMAL) Urine Culture (01/27/2024 11:01 AM [...] coli Cefazolin JULIAN <=4 ug/mL: Susceptible Comment:Cefazolin [place] C breakpoints are for the treatment of [...] - MICRO GENERAL ORDERABLES UU IDD LABORATORY [facility] Inf. Diseases Diag. Lab [address] [facility] [place] [address] * (ABNORMAL) Urine Microscopic Exam (01/27/2024 11:01 [...] LAB - URINE ORDERABL ES EA LABORATORY [facility] [place] [facility] [address] [facility] [place] [address], [facility] [phone] * (ABNORMAL) UA Macroscopic with reflex to [...] 01/27/2024 11:12 AM CDT [facility] LAB[facility]ATORY Specific [place] Urine >=1.030 1.003 - 1.035 01/27/2024 11:12 [...] LAB - URINE ORDERABL ES EA LABORATORY [facility] [address] [facility] [facility] [address] [place] [address], [facility] [phone] documented in this encounter Visit Diagnoses Diagnosis Dysuria- Primary Acute cystitis with hematuria Acute cystitis documented in this encounter Care Teams Virginia Line Attendant Relationship Specialty Start Date End Date No Ref-Primary, Physician PCP - General 01/20/22 documented as of this encounter
[2024-04-14 14:29] LABS: Chlamydia DNA Amplified* NOT DETECTED (No Detected); GC DNA Amplified* NOT DETECTED (No Detected)
== END 2024-04-14 09:45 | disposition home or self-care (01) ==
PROVIDERS: PCP Physician Assistant Medical; Visit Provider Obstetrics & Gynecology
DX: Z01.419 Encounter for gynecological examination (general) (routine) without abnormal findings (principal); Z11.3 Encounter for screening for infections with a predominantly sexual mode of transmission; Z13.6 Encounter for screening for cardiovascular disorders
CPT/HCPCS: 80061; 87491; 87591

== ENCOUNTER 2024-08-01 10:07 | Outpatient (CLI) | payer OTHER, SELFPAY ==
--- OUTSIDE RECORDS SUMMARY | 2024-08-01 10:09 | XMS_ITS | Clinical Summary ---
Author Organization [employer] [facility] Address [place], [place] [address] Care Team Providers Care Replanter Name Role Phone Dennis Leone MD Primary Care Provider Allergies Active Allergy Reactions Criticality Noted Date Comments Miconazole *Unknown 02/18/2023 Patient states it does the opposite of what it should be doing Medications Medication Sig Dispensed Refills Start Date End Date Status etonogestrel subdermal implant (Nexplanon) 68 mg implant Inject 1 Each subdermal one time for 1 dose. 1 Each 02/18/2023 Active Active Problems Problem Noted Date Diagnosed Date Constipation Immunizations Name Administration Dates Next Due DTaP 09/16/2007, 4,03/19/2003,01/15,2002 Hepatitis A (Peds) 10/07/2007,09/11/2006 Hepatitis B (Peds) 07/01/2003,01/15/2003, 003 Hib Conjugate, Unspecified 12/29/2003,01/15/2003 ,2002 Inactivated Polio Vaccine 10/07/2007,12/2002,01/15/2003,11/20 Influenza A (H1N1), Inactivated 11/09/2009,09/14 Influenza, IIV3 (Age 6-35 mos) 09/26/2016 Influenza, IIV3 (Age >=3 years) 08/07/20 07,08/20/2006,09/05/2005,08/16,09/21/2003 Influenza, IIV4 08/01/2022,09/30/2015 Influenza,CCIIV4 PRESERV FREE 09/15/2020, 017 Influenza,LAIV3 Live Intrana mango (Flumist) 07/09/2012,08/14/2011,08/11/2008 Influenza,LAIV4 Live Intrana mango (Flumist) 08/05/2013 MMR [...] Hepatitis C screening for age 18-79 2020 BMI (ht and wt on same day) for age 18+ 02/19/2024 02/18/2023 COVID-19 vaccine series (2023- season) 2024 04/05/2023 Influenza for age 9-49 06/29/2024 , 09/15/2020, 08/22/2017, Additional history exists Tetanus booster 10/09/2024 10/09/2014 Pap test for age 21-65 04/14/2027 04/14/2024 Pneumococcal series for age 6-64 Aged Out 09/13/2004, 03/19/2003, 01/15/2003, Additional history exists No longer eligible based on patient's age to complete this topic Tdap Completed 10/09/2014 Meningococcal series for age 11-21 Completed 11/10/2020, 10/09/2014 Procedures Procedure Name Priority Date/Time Associated Diagnosis Comments INCINERATOR [employer] GENER[employer] SUPERVISOR THIN PREP PAP SCREEN IMAGED Routine 04/14/2024 12:00 PM CDT from Last 3 Months or Most Recently Relevant to Health Maintenance Results * INCINERATOR [employer] GENERAL SUPERVISOR THIN PREP PAP SCREEN IMAGED (04/14/2024 12:00 PM CDT) Case Report Gynecologic Cytology Report ? Case: [id number] ? Authorizing Provider: ??Patrica Singh MD ?Collected: ? 04/14/2024 1200 ? Ordering Location: ? [facility] ?Received: ?04/15/2024 0925 ? First Screen: ?Lauren Waterman ? Pathologist: ? Adam Bernardo MD ? Specimen: ?[employer]PER[employer]OR ThinPrep Vial Screening, Cervical ? 04/23/2024 3:57 PM CDT [facility] [employer] [facility] INTERPRETATION/ RESULT NEGATIVE FOR INTRAEPITHELIAL LESION OR MALIGNANCY (NIL) (none) 04/23/2024 3:57 PM CDT [facility] R NON-NEOPLASTIC FINDING(S) Reactive cellular changes associated with inflammation/repa ir 04/23/2024 3:57 PM CDT [facility] [employer] [facility] LAB[facility]ORY SPECIMEN ADEQUACY Satisfactory for evaluation Endocervical component present 04/23/2024 3:57 PM CDT [facility] HPV REQUEST HPV not requested 2023 3:57 PM CDT [facility] Date of LMP 03/18/2024 04/23/2024 3:57 PM CDT [facility] Last Pap Date 04/23/2024 3:57 PM CDT [facility] Comment:no previous Abnormal Pap or [place] Bx in last 5 years No 04/23/2024 3:57 PM CDT [facility] Menstrual Status Hormonally Suppressed 04/23/2024 3:57 PM CDT [facility] Comment:Nexplanon [place] Bx Done Today No 04/23/2024 3:57 PM CDT [facility] Additional Information 04/23/2024 3:57 PM CDT [facility] Comment: Interpreted at [facility] [employer] [facility], Central Laboratory - [address] [address] Automated Review Successful 04/23/2024 3:57 PM CDT [facility]-C ENTRAL LABORATORY Comment:Specimen processed s uccessfully by automated dermatopathologist device, ThinPrep Imaging System, [employer] Note The pap test is a screening technique, not a diagnostic procedure. It is used primarily to screen for squamous cancers and precursor lesions. Published studies have shown that it is subject to both false negative and false positive results. The pap test should not be used as the sole means to diagnose or exclude pre-malignant and malignant lesions. 04/23/2024 3:57 PM CDT [facility] [employer] LABORATORY-C ENTRAL LABORATORY Other (Cervical) 04/14/2024 12:00 PM CDT 04/15/2024 9:25 AM CDT Patrica Singh MD PATHOLOGY/CYTOLOGY [facility] [address] [place] [address], [place] from Last 3 Months or Most Recently Relevant to Health Maintenance Care Teams Replanter Relationship Specialty Start Date End Date Dennis Leone MD [address] [facility] [address] [place] [address] PCP - General 06/27/10
--- OUTSIDE RECORDS SUMMARY | 2024-08-01 10:09 | XMS_ITS | Clinical Summary ---
Author Organization [facility] Address [address], [place] [address] Care Team Providers Care District Court Reporter Name Role Phone Unassigned, Provider Primary Care [...] for each transition of care or referral. [facility] Allergies Active Allergy Reactions Criticality Noted Date [...] x 5 days 10 Tablet 02/25/2024 Active Social History Tobacco Use Types Packs/Day Years [...] (1) 2021 COVID-19 Vaccine (2 - season) 2024 04/05/2023 Influenza (#1) 2024 08/01/2022, 08/29, 08/22/2017, Additional history exists DTaP/Tdap/Td (7 - Tdap) 10/09/2024 10/09/20 14, 09/16/2007, 12/29/2003, Additional history exists Zoster/Shingles (1 of 2) 2052 Hib Completed 12/29/2003, 12/28, 2002 Pneumococcal Aged Out 09/13/2004, 02/27, 01/15/2003, Additional history exists No longer eligible based on patient's age to complete this topic HepA Completed 10/07/2007, 09/11/2006 IPV (Polio) Completed 10/07/2007, 12/2002, 01/15/2003, Additional history exists MCV4 Completed 11/10/2020, 10/09/[address] Relationship Specialty Start Date End Date Unassigned, Provider [address] [place] [address] PCP - General 02
--- OUTSIDE RECORDS SUMMARY | 2024-08-01 10:09 | XMS_ITS | Clinical Summary ---
Author Organization [facility] [place] [facility] Address [address] [address] Phone Care Team Providers Care Heater Mechanic Name Role Phone Elsewhere, Pcp Primary Care [...] Problem Noted Date Diagnosed Date Constipation 02/20/2024 Social History Tobacco Use Types Packs/Day Years [...] 2002 Last pap w/o HPV Testing 2002 CHILD AND TEEN CHECKUP AGE 3 -20 YRS 2005 HPV Vaccine (Standing Order) (1 - 3-dose series) 2017 Chlamydia Screening 2018 Hepatitis B Vaccine (Standin g Order) (1 of 3 - 19+ 3-dose series) 2021 PERTUSSIS (Standing Order) 2021 TETANUS (Standing Order) 2021 COVID-19 Vaccine (2022-2 4 season) 2024 Influenza Vaccine Seasonal (Standing Order) (#1) 2024 Pneumococcal/PCV20 Vaccine: Pediatrics (2-5 yrs) and At-Risk Patients (6-64 yrs) (Standing Order) Aged Out No longer eligible b ased on patient's age to complete this topic Care Teams Heater Mechanic Relationship Specialty Start Date End Date Elsewhere, Pcp PCP - General 02/20/24
--- OUTSIDE RECORDS SUMMARY | 2024-08-01 10:10 | XMS_ITS | Clinical Summary ---
Author Organization [place] Address [address] [place] [id number] Care Team Providers Care Call Center Analyst Name Role Phone No Ref-Primary, Physician Primary [...] 3-dose series) 2017 HEPATITIS C SCREENING 2020 PAP 2023 PHQ-2 (once per calendar year) 2023 COVID-19 Vaccine (2 - 2023- season) 2024 04/05/2023 INFLUENZA VACCINE (#1) 2024 2, 09/15/2020, 08/22/2017, Additional history exists DTAP/TDAP/TD IMMUNIZATION (7 - Td or Tdap) 10/09/2024 10/09/2014, 09/16/2007, 12/29/2003, Additional history exists RSV VACCINE (1 - 1-dose 75+ series) 2077 HEPATITIS B IMMUNIZATION Completed 003, 01/15/2003, 01/15/2003, Additional history exists Pneumococcal Vaccine: Pediatrics (0 to 5 Years) and At-Risk Patients (6 to 64 Years) Aged Out 09/13/2004, 09/13/2004, 03/19/2003, Additional history exists No longer eligible based on patient's age to complete this topic MENINGITIS IMMUNIZATION Completed 11/10/19, 10/09/2014, 10/09/2014 RSV MONOCLONAL ANTIBODY Aged Out No l onger eligible based on patient's age to complete this topic Care Teams Call Center Analyst Relationship Specialty Start Date End Date No Ref-Primary, Physician PCP - General 01/20/22
--- OUTSIDE RECORDS SUMMARY | 2024-08-01 10:10 | XMS_ITS | Referral Summary ---
Author Organization [address] Address [address] [place] [address] Care Team Providers Care Rn Testing Name Role Phone No Ref-Primary, Physician Primary [...] of Treatment Not on file Care Teams Rn Testing Relationship Specialty Start Date End Date No Ref-Primary, Physician PCP - General 01/20/22
[2024-08-01 13:08] LABS: Bacterial Vaginosis* Negative (Negative); Candida glab/krus NOT DETECTED (No Detected); Candida species NOT DETECTED (No Detected); Trichomonas vaginalis NOT DETECTED (No Detected)
== END 2024-08-01 10:08 | disposition home or self-care (01) ==
LOC: NFLDREF 10:07
PROVIDERS: PCP Physician Assistant Medical; Visit Provider Registered Nurse
DX: N89.8 Other specified noninflammatory disorders of vagina (principal)
CPT/HCPCS: 81513; 87481; 87661

== ENCOUNTER 2024-08-05 18:21 | Outpatient (CLI) | payer OTHER, SELFPAY ==
--- OUTSIDE RECORDS SUMMARY | 2024-08-05 18:23 | XMS_ITS | Clinical Summary ---
Author Organization [facility] Address [address], [place] [address] Care Team Providers Care Comic Artist Name Role Phone Unassigned, Provider Primary Care [...] for each transition of care or referral. [facility] Allergies Active Allergy Reactions Criticality Noted Date [...] Additional history exists MCV4 Completed 11/10/2020, 10/09/2014 RSV Aged Out No longer eligi ble based on patient's age to complete this topic Care Teams Comic Artist Relationship Specialty Start Date End Date Unassigned, Provider [address] [place] [address] PCP - General 02
--- OUTSIDE RECORDS SUMMARY | 2024-08-05 18:23 | XMS_ITS | Continuity of Care Document ---
Author Organization [facility] Address [address] [address] [place] [address] Phone Care Team Providers Care Fire Regulator Name Role Phone No Information Unavailable Unavailable Allergies, Adverse Reactions, Alerts Substance Reaction Status Criticality No Known allergies Medications Medication Instructions Dosage Effective Dates (start - stop) Status Comments MULTIVITAMINS (unknown strength) 2 gummies every day Not Available - Active Miralax 17 gram/dose Oral Powder Use as directed( 14 grams once daily) - Active Procedures Procedure Date Offic Cons New/estab Mod-hi 60 09 Routine Serum Collection [id number] Advance Directives Directive Yes / No Effective Date File Name No Information Encounters Encounter Description Practice Location Reason(s) For Visit Diagnoses Date Provider Providers Copied on Encounter [facility], [address] [address], [place], [place], [id number], [place] tel:[phone] No Information Dec- 3 No Information Offic Cons New/estab Mod-hi 60 [facility], [address] [address], [place], [place], [id number], tel:[phone] Pediatric Clinic Abdominal pain (chief complaint) Constipation UnspecifiedAbdom inal Pain, Unspecified [address] [facility], [facility] [address], [place], [place], [id number], [place]. tel:[phone] Referring Provider: Dennis Leone MD, [address] [facility] [address], [place], [address]. tel:[phone] Family History Family Member Type Diagnosis Age At Onset First degree family history Problem (finding) No history of Crohn's Maternal aunt Problem (finding) Thyroid disorder First degree family history Problem (finding) No history of Ulcerative Colitis First degree family history Problem (finding) No Family history of No history of Colon Polyps First degree family history Problem (finding) No history of Colon Rectal Cancer Payers Payer name Insurance type Covered green party ID Authoriza tion(s) No Information Social History Type Description Quantity Date Captured Comments Sex Female Smoking Status No Information Chief Complaint And Reason For Visit No Information Reason For Referral Reason For Referral No Information History Of Present Illness Encounter Date Complaint History Of Prese nt Illness No Information Functional Status Date Functional Assessmen t No Information Instructions Date Instruction Additional Infor mation No Information Assessments Type Assessment Date No Information Patient Care Teams Name Effective Dates (start - stop) Status Members No Information
--- OUTSIDE RECORDS SUMMARY | 2024-08-05 18:23 | XMS_ITS | Clinical Summary ---
Author Organization [facility] Address [address] [place] [address] Care Team Providers Care Delicate Fabrics Presser Name Role Phone No Ref-Primary, Physician Primary [...] age to complete this topic Care Teams Delicate Fabrics Presser Relationship Specialty Start Date End Date No Ref-Primary, Physician PCP - General 01/20/22
--- OUTSIDE RECORDS SUMMARY | 2024-08-05 18:23 | XMS_ITS | Clinical Summary ---
Author Organization [facility] Address [address] [address] Phone Care Team Providers Care Prepress Specialist Name Role Phone Elsewhere, Pcp Primary Care [...] age to complete this topic Care Teams Prepress Specialist Relationship Specialty Start Date End Date Elsewhere, Pcp PCP - General 02/20/24
--- OUTSIDE RECORDS SUMMARY | 2024-08-05 18:23 | XMS_ITS | Clinical Summary ---
Author Organization [facility] Address [place], [place] [address] Care Team Providers Care Compensator Worker Name Role Phone Dennis Leone MD Primary [...] Encounters Date Type Department Care Team Description 08/04/2024 Travel from Last 3 Months Immunizations Name [...] Mass Index - - Plan of Treatment Upcoming Encounters Date Type Department Care Team (Late st Contact Info) Description 08/08/2024 12:45 PM CDT [place] [facility] [place] [address] [place] [address] [place] [address] [place] [address] Health Maintenance Due Date Last Done Comments Depression screening for age 12+ 2014 HIV for age 15-65 2017 HPV series for age 9-26 (1 - 3-dose series) 2017 Hepatitis C screening for age 18-79 2020 BMI (ht and wt on same day) for age 18+ 02/19/2024 02/18/2023 COVID-19 vaccine series ( season) 2024 04/05/2023 Influenza for age 9-49 [...] Procedure Name Priority Date/Time Associated Diagnosis Comments BRAKE OPERATOR HELPER THIN PREP PAP SCREEN IMAGED Routine 04/14/2024 12:00 PM CDT from Last 3 Months or Most Recently Relevant to Health Maintenance Results * BRAKE OPERATOR HELPER THIN PREP PAP SCREEN IMAGED (04/14/2024 12:00 PM CDT) Case Report Gynecologic Cytology Report ? Case: [id number] ? Authorizing Provider: ??Patrica Singh MD ?Collected: ? 04/14/2024 1200 ? Ordering Location: ? [facility] ?Received: ?04/15/2024 0925 ? First Screen: ?Guevara, Lauren Eduardo ? Pathologist: ? Adam Bernardo MD ? Specimen: ?BRAKE OPERATOR HELPER ThinPrep Vial Screening, Cervical ? 04/23/2024 3:57 PM CDT [facility] Stockpile [facility] INTERPRETATION/ RESULT NEGATIVE FOR INTRAEPITHELIAL LESION OR MALIGNANCY (NIL) (none) 04/23/2024 3:57 PM CDT [facility] R NON-NEOPLASTIC FINDING(S) Reactive cellular changes associated with inflammation/repa ir 04/23/2024 3:57 PM CDT [facility]- ENTRAL LABORATORY SPECIMEN ADEQUACY Satisfactory for evaluation Endocervical component present 04/23/2024 3:57 PM CDT [facility]- [facility] HPV REQUEST HPV not requested 2023 3:57 PM CDT [facility]AL [facility] Date of LMP 03/18/2024 04/23/2024 3:57 PM CDT [facility] Last Pap Date 04/23/2024 3:57 PM CDT [facility] Comment:no previous Abnormal Pap or [place] Bx in last 5 years No 04/23/2024 3:57 PM CDT [facility] Menstrual Status Hormonally Suppressed 04/23/2024 3:57 PM CDT [facility] Comment:Nexplanon [place] Bx Done Today No 04/23/2024 3:57 PM CDT [facility] Additional Information 04/23/2024 3:57 PM CDT [facility] Comment: Interpreted at [facility] - [address], [place] [address] Automated Review Successful 04/23/2024 3:57 PM CDT [facility] Comment:Specimen processed s uccessfully by automated mental tester device, ThinPrep Imaging System, [employer] Note The pap test is a [...] and malignant lesions. 04/23/2024 3:57 PM CDT [facility] Other (Cervical) 04/14/2024 12:00 PM CDT 04/15/2024 9:25 AM CDT Patrica Singh MD PATHOLOGY/CYTOLOGY [facility] [address] [place] [address], from Last 3 Months or Most Recently Relevant to Health Maintenance Care Teams Compensator Worker Relationship Specialty Start Date End Date Dennis Leone MD [address] [place] [address] [facility] - General 06/27/10
--- OUTSIDE RECORDS SUMMARY | 2024-08-05 18:23 | XMS_ITS | Referral Summary ---
Author Organization [facility] Address [address] [place] [address] Care Team Providers Care Entertainer Or Variety Artist Name Role Phone No Ref-Primary, Physician Primary [...] of Treatment Not on file Care Teams Entertainer Or Variety Artist Relationship Specialty Start Date End Date No Ref-Primary, Physician PCP - General 01/20/22
[2024-08-05 22:36] LABS: Chlamydia DNA Amplified* NOT DETECTED (No Detected); GC DNA Amplified* NOT DETECTED (No Detected)
== END 2024-08-05 18:22 | disposition home or self-care (01) ==
PROVIDERS: PCP Physician Assistant Medical; Visit Provider Registered Nurse
DX: R10.2 Pelvic and perineal pain (principal); Z11.3 Encounter for screening for infections with a predominantly sexual mode of transmission
CPT/HCPCS: 87086; 87109; 87491; 87591

== ENCOUNTER 2024-09-12 14:54 | Outpatient (CLI) | payer OTHER, SELFPAY ==
[2024-09-12 23:31] LABS: Chlamydia DNA Amplified* NOT DETECTED (No Detected); GC DNA Amplified* NOT DETECTED (No Detected)
== END 2024-09-12 14:55 | disposition home or self-care (01) ==
PROVIDERS: PCP Physician Assistant Medical; Visit Provider Obstetrics & Gynecology
DX: N76.0 Acute vaginitis (principal); N89.8 Other specified noninflammatory disorders of vagina
CPT/HCPCS: 87109; 87491; 87591

== ENCOUNTER 2024-11-12 11:57 | Outpatient (CLI) | payer OTHER, SELFPAY | END 2024-11-12 11:58 | disposition home or self-care (01) | LOC: NFLDREF 11-17 03:37 | PROVIDERS: PCP Physician Assistant Medical; Referring Provider Physician Assistant Medical; Visit Provider Family Medicine | DX: R82.90 Unspecified abnormal findings in urine (principal) | CPT/HCPCS: 87086 ==

== ENCOUNTER 2024-12-26 08:10 | Outpatient (CLI) | payer OTHER, SELFPAY | END 2024-12-26 08:11 | disposition home or self-care (01) | LOC: NFLDREF 12-29 01:48 | PROVIDERS: PCP Physician Assistant Medical; Referring Provider Physician Assistant Medical; Visit Provider Physician Assistant Medical | DX: R00.2 Palpitations (principal); Z13.228 Encounter for screening for other metabolic disorders; Z13.220 Encounter for screening for lipoid disorders | CPT/HCPCS: 80053; 80061; 84443 ==

== ENCOUNTER 2025-01-02 08:20 | Outpatient (CLI) | payer OTHER, SELFPAY | END 2025-01-02 08:21 | disposition home or self-care (01) | LOC: NFLDREF 01-04 16:29 | PROVIDERS: PCP Physician Assistant Medical; Referring Provider Physician Assistant Medical; Visit Provider Physician Assistant Medical | DX: N92.6 Irregular menstruation, unspecified (principal); R63.5 Abnormal weight gain; L90.6 Striae atrophicae | CPT/HCPCS: 82533; 83498; 83525; 84146; 84270; 84402; 84403; 86376 ==

== ENCOUNTER 2025-05-12 13:16 | Outpatient (CLI) | payer OTHER, SELFPAY | END 2025-05-12 13:17 | disposition home or self-care (01) | LOC: NFLDREF 05-15 02:03 | PROVIDERS: PCP Physician Assistant Medical; Referring Provider Physician Assistant Medical | DX: N30.01 Acute cystitis with hematuria (principal); B96.20 Unspecified Escherichia coli [E. coli] as the cause of diseases classified elsewhere | CPT/HCPCS: 87086 ==